=== PATIENT | female | born 1975 ===

== ENCOUNTER 2024-09-25 12:59 | Outpatient (AMB) | payer OTHER, SELFPAY ==
[2024-09-25 13:03] VITALS: BP 116/72; PULSE 83; RESP 16; TEMP 37.3; O2SAT 97
--- NOTE | 2024-09-25 13:03 | MHC.PC.OV ---
Vital Signs 09/25/24 13:03 Height 5 ft 5.25 in Weight 181 lb 6.4 oz BMI 30.0 BP 116/72 Blood Pressure Location Lt brachial Position Sitting Respiration 16 Pulse 83 Pulse Source Pulse Oximeter Temp 99.1 F Temp Source Oral Pulse Oximetry (%) 97 Oxygen Delivery Method Room Air Intake Visit Reasons: SYSTEMS MGR Intake Note: Patient is a new patient here to [facility]. Transferring care from [place], [place]. Medical records have not been requested and have not been received. Patient completed Authorization to Release Medical Information form today. Drum Carrier Required: No Accompanied by: Self / Same As Patient Allergies No Known Allergies Allergy (Verified 09/25/24 21:39) Medication List - Last Reconciled 09/25/24 by TIANNA Peters No Known Home Meds Tobacco use date assessed: 09/25/24 Dental Screening Dental Screen Date: 09/25/24 Did you have a dental visit in the last 12 months?: Yes Did you have a dental problem in the last 6 months where you did not have access to dental care?: No Was dental information given to patient?: Patient has dentist HPI SYSTEMS MGR HPI Details The patient is a 48-year-old female presenting to [facility]. She reports concerns about elevated CA 125 levels and abdominal pain. She has a history of thyroid nodules, initially monitored since 2012, which now includes two nodules. Additionally, she reports uterine fibroids discovered in the [place] leading to pain and heavy menstrual bleeding, which has escalated recently in severity. Her history also includes a positive HPV test prior to a negative test in June 2023. Recently, the patient has experienced nausea and vomiting, particularly after breakfast, leading to episodes immediately following intake. This is accompanied by abdominal swelling and discomfort, predominantly located in the mid-upper abdomen/left upper quadrant and contributing to facial swelling. She reports rectal discomfort on occasion without associated constipation, but with an altered shape (thinning) of stools, suspecting hemorrhoids. There is no accompanying mucosal or bloody discharge. The patient's family history includes both parents with hypertension and hyperlipidemia, and maternal diabetes. She [place] diagnostic tests and [place] issues, including an echocardiogram and Holter monitoring, following episodes of heart palpitations, which were reported normal. No adverse symptoms accompany palpitations, and they do not follow a particular pattern. The patient endorses drinking coffee three times a day. The patient reports that she was seeing an bake room worker, edge bonder, and obgyn, and she will need referrals for all these specialities. [facility] Medical History (Updated 09/25/24 @ 22:17 by TIANNA Peters) HLD (hyperlipidemia) Cytology examination positive for high risk human papillomavirus (HPV) Fibroids Thyroid mass Surgical History History of loop electrosurgical excision procedure (LEEP) Hx of dilation and curettage Family History Father Hypertension High cholesterol Mother Diabetes Hypertension High cholesterol FH: mental illness Depression Son No problems noted. Other HLD (hyperlipidemia) Social History Household Members: None Housing: Apartment Alcohol intake: never Patient Tobacco Use Status: Never used Tobacco e-Cigarette/Vaping Use: Never Used service: No Current occupational status: employed Current occupation: [employer] Cognitive needs: No Hearing needs: No Vision needs: No Female Reproductive History Menstrual Age of Menarche: 15 Duration of menses: 8-10 days Date of last menstrual period: 08/31/24 Questionnaire PHQ-9 Over the last 2 weeks, how often have you been bothered by any of the following problems? 1. Little interest or pleasure in doing things: several days 2. Feeling down, depressed, or hopeless: several days 3. Trouble falling or staying asleep, or sleeping too much: several days 4. Feeling tired or having little energy: several days 5. Poor appetite or overeating: several days 6. Feeling bad about yourself - or that you are a failure or have let yourself or your family down: several days 7. Trouble concentrating on things, such as reading the newspaper or watching television: several days 8. Moving or speaking so slowly that other people could have noticed. Or the opposite - being so fidgety or restless that you have been moving around a lot more than usual: not at all 9. Thoughts that you would be better off or of hurting yourself in some way: several days Total score: 8 Depression Screening Interpretation: Positive Depression Screening Done: Yes 78956 - PHQ-9 Billing: Yes Source: Developed by Drs. Devin Boland, Lilia Montejo, Shay Alexis and colleagues, with an educational brian from [employer]. Thrive Questionnaire Date Thrive assessed: 09/25/24 I am a: Patient What is your living situation today?: I have a steady place to live Within the past 12 months, did the food you bought not last and you didn't have the money to get more?: I choose not to answer this question Within the past 12 months, did you worry whether your food would run out before you got money to buy more?: I choose not to answer this question Do you have trouble paying for medicines?: I choose not to answer this question Do you have trouble getting transportation to medical appointments?: No Do you have trouble paying your heating and electricity bill?: No Do you have trouble taking care of your child, family member or friend?: No Do you have trouble with day-to-day activities such as bathing, preparing meals, shopping, managing finances, etc.?: Yes Are you currently unemployed and looking for a job?: No Are you interested in more education?: Yes Please select the resources that you would like help with: Education Currently or been in a relationship where the following occur: No concerns reported THRIVE Score: 0 AUDIT C Alcohol Use Questionnaire (AUDIT-C) 1. How often do you have a drink containing alcohol?: Monthly or less 2. How many drinks containing alcohol do you have on a typical day when you are drinking?: 1 or 2 3. How often do you have six or more drinks on one occasion?: Never Total Score: 1 Score Reviewed/Action Taken: No KOKO-7 AMB Questionnaire KOKO-7 Date KOKO - 7 assessed: 09/25/24 Feeling nervous, anxious, or on edge: 1 = Several days Not being able to stop or control worryin = Several days Worrying too much about different things: 1 = Several days Trouble relaxin = Several days Being so restless that it is hard to sit still: 1 = Several days Becoming easily annoyed or irritable: 1 = Several days Feeling afraid as if something awful might happen: 1 = Several days Total KOKO-7 score (0-4 normal; 5-9 mild; 10-14 moderate; 15-21 severe): 7 Source: Developed by Drs. Devin Boland, Lilia Montejo, Shay Alexis and colleagues, with an educational brian from [employer]. KOKO-7 Assessment Billing KOKO-7 Assessment Tool: KOKO-7 Assessment 73659 Review of Systems Const Details: - Gastrointestinal: Reports nausea, vomiting shortly after breakfast, abdominal pain, changes in stool shape. Denies heartburn or significant constipation. - Cardiovascular: Reports episodic heart palpitations. Denies chest pain or shortness of breath. - Genitourinary: Reports heavy and painful menstruation, associated with fibroids. - Dermatological: Reports facial swelling. - Neurological: Denies significant neurological complaints. Denies headache(s) Eyes Denies loss of vision ENT Denies vertigo, Denies dizziness, Denies headache(s) and Denies sore throat Card Denies chest pain, Reports rapid heart rate (on and off), Denies leg edema and Denies lightheadedness Resp Denies cough, Denies hemoptysis and Denies wheezing GI Reports abdominal pain (epigastric, left side of abdomen mid-way between the LUQ & LLQ), Denies melena, Reports change in stool character (thinner stools), Denies constipation, Reports excessive flatus, Denies diarrhea, Reports nausea, Reports vomiting and Reports other (intermittent anal pain) Reports abnormal vaginal bleeding, Denies urinary frequency, Reports menorrhagia, Denies dysuria and Denies urinary urgency Musc Denies arthralgias, Denies joint swelling, Denies numbness and Denies tingling Neuro Denies Abnormal speech present, Denies behavioral changes, Denies vertigo, Denies dizziness, Denies headache(s), Denies loss of vision, Denies memory loss, Denies numbness and Denies tingling Psych Denies anxiety, Denies behavioral changes, Denies depression, Denies memory loss and Denies panic attacks Elia/Lymph Denies easy bleeding and Denies easy bruising Aller/Immun Denies wheezing Physical exam (Primary Care) Vital Signs: Last Vital Signs Temp 99.1 F 09/25/24 13:03 Pulse 83 09/25/24 13:03 Resp 16 09/25/24 13:03 BP 116/72 09/25/24 13:03 Pulse Ox 97 09/25/24 13:03 Oxygen Delivery Method Room Air 09/25/24 13:03 BMI result Body Mass Index 30.0 Tobacco/Smoking Status: Tobacco use Status Tobacco use date assessed 09/25/24 09/25/24 13:19 Patient Tobacco Use Status Never used Tobacco 09/25/24 13:19 e-Cigarette/Vaping Use Never Used 09/25/24 13:19 PHQ-9: PHQ-9 Score PHQ-9: Total score 8 09/25/24 13:40 Depression Screening Interpretation: Positive Thrive Assessment: Date of Thrive Assessment Date Thrive assessed 09/25/24 09/25/24 13:19 Currently or been in a relationship where the following occur: No concerns reported Const General: healthy appearing, no acute distress, alert and awake Nutritional Appearance: well nourished Orientation/consciousness: oriented to person, oriented to place and oriented to time HENMT Ears: TM's normal bilaterally General nose exam: Normal nasal mucous membranes and turbinates present Eyes Conjunctivae: conjunctivae normal Sclerae: sclerae normal Pupils: Equal, round and reactive pupils present Neck Neck: Yes no lymphadenopathy and Yes no JVD Thyroid: Thyroid normal and mass on the left Carotids: no bruits Resp Effort & Inspection: normal respiratory effort and not tachypneic Auscultation: no crackles, no rales, no rhonchi and no wheezes Cardio Rate: regular rate Rhythm: regular rhythm Heart sounds: no murmurs and normal S1 and S2 GI Palpation (GI): Soft to palpation, Tenderness to palpation present (GI) in the epigastrum and in the LUQ, no hepatomegaly and no splenomegaly Auscultation: normal bowel sounds Skin General skin exam: no rashes or lesions noted and dry skin Neuro General: oriented to person, oriented to place and oriented to time Cranial nerves: Yes Equal, round and reactive pupils present Speech: No Abnormal speech present Gait exam (Neuro): Normal gait present Motor exam (neuro): no tremor noted Extrem Right upper extremity: full ROM Left upper extremity: full ROM Right lower extremity: full ROM; no edema Left lower extremity: full ROM; no edema Psych Mental Status: mental status grossly normal Speech and movement: Normal speech and movement present Affect: normal affect Attitude: cooperative Thought process: Normal thought process present Coding Level of Care Code New Pt Level 4 (00207) Diagnoses Nausea and vomiting, unspecified vomiting type R11.2 Vomiting type: unspecified Anal pain K62.89 Heart palpitations R00.2 Thyroid mass E07.9 Fibroids D21.9 Epigastric pain R10.13 Abdominal location: epigastric Additional Codes KOKO-7 Assessment Billing - KOKO-7 Assessment Tool: KOKO-7 Assessment 69478 ([id number]) PHQ-9 - 62465 - PHQ-9 Billing: Yes ([id number]) Time Spent (min) 43 Assessment & Plan Assessment & Plan (1) Nausea & vomiting: Code(s): R11.2 - Nausea with vomiting, unspecified Category: Medical Qualifiers: Vomiting type: unspecified Qualified Code(s): R11.2 - Nausea with vomiting, unspecified (2) Anal pain: Code(s): K62.89 - Other specified diseases of anus and rectum Category: Medical (3) Heart palpitations: Code(s): R00.2 - Palpitations Category: Medical (4) Thyroid mass: Code(s): E07.9 - Disorder of thyroid, unspecified Category: Medical (5) Fibroids: Code(s): D21.9 - Benign neoplasm of connective and other soft tissue, unspecified Category: Medical (6) Abdominal pain: Code(s): R10.9 - Unspecified abdominal pain Category: Medical Qualifiers: Abdominal location: epigastric Qualified Code(s): R10.13 - Epigastric pain Plan The focus remains on acquiring a complete abdominal ultrasound to further evaluate. The needs to be referred to obgyn to help determine the cause of her elevated CA 125 and related symptoms. Gastroenterology referral and colonoscopy are advised targeting gastrointestinal symptoms. Thyroid nodules will continue to be monitored, with specialist referral should manifestation or findings evolve. Screening and lifestyle adjustments for hyperlipidemia and potential hypertension are advised considering her family background. The patient is instructed on moderating coffee intake to alleviate palpitations and will do a follow-up in six weeks. The patient was also ordered Omeprazole 40 mg daily to rule out GERD symptoms causing nausea and vomiting after eating. Patient was informed and verbally consented to the use of an ambient scribe for clinic note documentation during this visit. Orders: Orders Complete Blood Count Auto Diff Today D21.9 - Benign neoplasm of connective and other soft tissue, unspecified, E07.9 - Disorder of thyroid, unspecified, R00.2 - Palpitations, R10.9 - Unspecified abdominal pain, Z00.00 - Encounter for general adult medical examination without abnormal findings TSH reflex Free T4 Today D21.9 - Benign neoplasm of connective and other soft tissue, unspecified, E07.9 - Disorder of thyroid, unspecified, R00.2 - Palpitations, R10.9 - Unspecified abdominal pain, Z00.00 - Encounter for general adult medical examination without abnormal findings Glucose Fasting Today D21.9 - Benign neoplasm of connective and other soft tissue, unspecified, E07.9 - Disorder of thyroid, unspecified, R00.2 - Palpitations, R10.9 - Unspecified abdominal pain, Z00.00 - Encounter for general adult medical examination without abnormal findings Vitamin D 25-OH Total Today D21.9 - Benign neoplasm of connective and other soft tissue, unspecified, E07.9 - Disorder of thyroid, unspecified, R00.2 - Palpitations, R10.9 - Unspecified abdominal pain, Z00.00 - Encounter for general adult medical examination without abnormal findings CRP High Sensitivity Today D21.9 - Benign neoplasm of connective and other soft tissue, unspecified, E07.9 - Disorder of thyroid, unspecified, R00.2 - Palpitations, R10.9 - Unspecified abdominal pain, Z00.00 - Encounter for general adult medical examination without abnormal findings Amylase Today R10.9 - Unspecified abdominal pain, R11.2 - Nausea with vomiting, unspecified Lipase Today R10.9 - Unspecified abdominal pain, R11.2 - Nausea with vomiting, unspecified Comprehensive [place]. Panel Fast Today D21.9 - Benign neoplasm of connective and other soft tissue, unspecified, E07.9 - Disorder of thyroid, unspecified, R00.2 - Palpitations, R10.9 - Unspecified abdominal pain, Z00.00 - Encounter for general adult medical examination without abnormal findings Lipid Panel Today D21.9 - Benign neoplasm of connective and other soft tissue, unspecified, E07.9 - Disorder of thyroid, unspecified, R00.2 - Palpitations, R10.9 - Unspecified abdominal pain, Z00.00 - Encounter for general adult medical examination without abnormal findings Triiodothyronine T3 Total Today D21.9 - Benign neoplasm of connective and other soft tissue, unspecified, E07.9 - Disorder of thyroid, unspecified, R00.2 - Palpitations, R10.9 - Unspecified abdominal pain, Z00.00 - Encounter for general adult medical examination without abnormal findings Free T4 (Free Thyroxine) Today D21.9 - Benign neoplasm of connective and other soft tissue, unspecified, E07.9 - Disorder of thyroid, unspecified, R00.2 - Palpitations, R10.9 - Unspecified abdominal pain, Z00.00 - Encounter for general adult medical examination without abnormal findings Erythrocyte Sedimentation Rate Today D21.9 - Benign neoplasm of connective and other soft tissue, unspecified, E07.9 - Disorder of thyroid, unspecified, R00.2 - Palpitations, R10.9 - Unspecified abdominal pain, Z00.00 - Encounter for general adult medical examination without abnormal findings US abdomen complete Today R10.9 - Unspecified abdominal pain Referrals Gastroenterology Referral K62.89 - Other specified diseases of anus and rectum, R10.13 - Epigastric pain, R11.2 - Nausea with vomiting, unspecified CIGARETTE MAKING EXAMINER Referral D21.9 - Benign neoplasm of connective and other soft tissue, unspecified, R87.810 - Cervical high risk human papillomavirus (HPV) DNA test positive Endocrinology Referral E07.9 - Disorder of thyroid, unspecified Medications: New omeprazole 40 mg PO DAILY 30 caps 2RF Patient Instructions: - Schedule and complete the recommended abdominal ultrasound promptly. - Follow up with GI specialist and schedule a colonoscopy. - Monitor thyroid with bake room worker if symptoms change. - Decrease coffee intake to see if it helps reduce heart palpitations. - Maintain records of any new symptoms and share them at follow-up. - Return in six weeks for follow-up, or sooner if lab results are concerning.
== END 2024-09-25 13:57 | disposition home or self-care (01) ==
LOC: HO.HMCH 13:00
DX: R11.2 Nausea with vomiting, unspecified (principal); K62.89 Other specified diseases of anus and rectum; R00.2 Palpitations; E07.9 Disorder of thyroid, unspecified; D21.9 Benign neoplasm of connective and other soft tissue, unspecified; R10.13 Epigastric pain

== ENCOUNTER → 2024-09-25 12:59 | Outpatient (BNVA) | payer OTHER, SELFPAY | DX: R11.2 Nausea with vomiting, unspecified (principal); K62.89 Other specified diseases of anus and rectum; R00.2 Palpitations; E07.9 Disorder of thyroid, unspecified; D21.9 Benign neoplasm of connective and other soft tissue, unspecified; R10.13 Epigastric pain | CPT/HCPCS: 96127; 99202 ==

== ENCOUNTER 2024-10-16 10:43 | Outpatient (REF) | payer OTHER, SELFPAY ==
--- NOTE | ~2024-10-16 | US_ITS ---
EXAMINATION: US ABDOMEN COMPLETE CLINICAL INFORMATION: Unspecified abdominal pain.. COMPARISON: None available. TECHNIQUE: Real-time ultrasound of the abdomen using grayscale technique. FINDINGS: PANCREAS: No peripancreatic fluid collection. No main pancreatic ductal dilatation. ABDOMINAL AORTA: The proximal, mid, and distal segments are normal in caliber. INFERIOR VENA CAVA: Visualized portions are normal. LIVER: Liver measures 14 cm by the certified ophthalmic technologist. Coarse echotexture. No nodular surface. Main portal vein is patent with normal hepatopedal flow direction.. No solid or cystic lesion detected by the certified ophthalmic technologist. No intrahepatic biliary ductal dilatation. GALLBLADDER: Fluid-filled. No pericholecystic fluid collection or gallbladder wall thickening. COMMON BILE DUCT: 3 mm. RIGHT KIDNEY: 11 cm. Normal echotexture. Normal renal cortical thickness. No hydronephrosis. No gross solid or cystic lesion detected by the technologist. LEFT KIDNEY: 11 cm. Normal echotexture. Normal renal cortical thickness. No hydronephrosis. No solid or cystic lesion detected by the technologist. . SPLEEN: 10 cm. No focal lesion.. FREE FLUID: None. US/US abdomen complete IMPRESSION: No cholelithiasis. No hydronephrosis. No ascites. Electronically signed by: Ok Farooq MD 10/16/2024 12:18 PM EDT
[2024-10-16 11:49] LABS: MANUAL DIFF FLAG NO
[2024-10-16 12:21] LABS: Basophils Absolute Auto 0.1 X10*3/uL (0.0-0.2); Basophils Percent Auto 0.8 % (0-2); Eosinophils Absolute Auto 0.1 X10*3/uL (0.0-0.4); Eosinophils Percent Auto 1.1 % (0-4); Hemoglobin 13.2 g/dl (12.0-16.0); Imm Gran Abs Auto 0.01 X10*3/uL (0.00-0.03); Imm Gran Pct Auto 0.1 % (0.0-0.4); Lymphocytes Absolute Auto 1.3 X10*3/uL (1.2-4.9); Mean Corpuscular HGB Conc 32.2 g/dl (31.0-35.0); Mean Corpuscular Hemoglobin 26.6 pg (27.0-33.0); Mean Corpuscular Volume 82.7 fL (80.0-98.0); Mean Platelet Volume 11.7 fL (9.4-12.3); Monocytes Absolute Auto 0.4 X10*3/uL (0.1-1.2); Neutrophils Absolute Auto 5.3 x10*3/uL (2.0-8.3); Platelet Count 248 X10*3/uL (160-400); Red Blood Count 4.96 X10*6/uL (4.20-5.50); Red Cell Distribution Width 15.9 % (11.0-16.0); White Blood Count 7.2 X10*3/uL (4.8-10.8)
[2024-10-16 13:02] LABS: Erythrocyte Sedimentation Rate 10 MM/HR (0-20)
[2024-10-16 15:24] LABS: Alanine Aminotransferase 16 U/L (0-31); Albumin Level 4.7 g/dL (3.5-5.0); Alkaline Phosphatase 88 U/L (39-117); Amylase 94 U/L (28-100); Anion Gap 9 (12-20); Aspartate Amino Transferase 24 U/L (5-31); Bilirubin Total 0.4 mg/dL (0.0-1.0); Blood Urea Nitrogen 12 mg/dL (9-16); Calcium 9.4 mg/dL (8.4-10.2); Carbon Dioxide 28 mmol/L (22-29); Chloride 106 mmol/L (96-108); Cholesterol 271 mg/dL (<200); Estimated Glomerular Filt Rate > 60; Glucose Fasting 83 mg/dL (60-99); HDL Cholesterol 62 mg/dL (>40); LDL Cholesterol Calculated 183 mg/dL (<100); Lipase 21 U/L (8-78); Potassium 3.8 mmol/L (3.3-5.1); Sodium 139 mmol/L (135-145); Total Protein 7.6 g/dL (6.5-8.0); Triglycerides 132 mg/dL (<150)
[2024-10-16 15:41] LABS: Free T4 (Free Thyroxine) 1.08 ng/dL (0.71-1.85); TSH reflex Free T4 1.35 uIU/mL (0.32-4.0); Vitamin D 25-OH Total 42.7 ng/mL (>30)
[2024-10-17 04:24] LABS: Triiodothyronine T3 Total 75 ng/dL (76-181)
== END 2024-10-16 10:44 | disposition home or self-care (01) ==
LOC: HO.US 10:43
DX: Z00.00 Encounter for general adult medical examination without abnormal findings (principal); R10.9 Unspecified abdominal pain; D21.9 Benign neoplasm of connective and other soft tissue, unspecified; E07.9 Disorder of thyroid, unspecified; R00.2 Palpitations; R11.2 Nausea with vomiting, unspecified
CPT/HCPCS: 36415; 76700; 80053; 80061; 82150; 82306; 83690; 84439; 84443; 84480; 85025; 85652; 86141

== ENCOUNTER → 2024-10-16 10:57 | Outpatient (BNV) | payer OTHER, SELFPAY | PROVIDERS: Visit Provider Radiology Diagnostic Radiology | DX: R10.9 Unspecified abdominal pain (principal) | CPT/HCPCS: 76700 ==

== ENCOUNTER 2024-10-25 14:50 | Outpatient (AMB) | payer OTHER, SELFPAY ==
--- NOTE | 2024-10-25 14:56 | A.OFFPC_ITS ---
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 Accompanied by: Self / Same As Patient Allergies No Known Allergies Allergy (Verified 10/25/24 15:05) Medication List - Last Reconciled 10/25/24 by TIANNA Peters multivitamin 1 tab PO DAILY omeprazole 40 mg PO DAILY Tobacco use date assessed: 10/25/24 Dental Screening Dental Screen Date: 10/25/24 Did you have a dental visit in the last 12 months?: Yes Did you have a dental problem in the last 6 months where you did not have access to dental care?: No Was dental information given to patient?: Patient has dentist HPI annual exam HPI Details Dentist: up to date Eye:about 2 years Snellen: Right: Left: Corrected vision: no STI screening: Colonoscopy: will do the cologaurd Pap Smer: 06/2023-due has upcoming appt mammogram: due she will PHQ-9: Flu: up to date COVID: x4 Tdap: she will check if she is update on this test Diet: Eating four eggs a day, she will start removing the yoke of the eggs Exercise:She walks frequently not sleeping: will start on trazodone 25 mg for bedtime, patient can increased to 50 mg or update office so the prescription could be changed. The patient is a 48-year-old female presenting with a wellness visit with an emphasis on the management of her hyperlipidemia, insomnia, thyroid dysfunction, and anxiety. Her hyperlipidemia has proven challenging to control, with statin therapy previously causing dizziness and leading to discontinuation. Maternal and paternal histories indicate familial hyperlipidemia, which increases her c ardiovascular risk. The insomnia she experiences is characterized by an inability to maintain sleep, impacting her overall rest quality. Past interventions include lorazepam and [id number] Benadryl, the latter of which led to undesirable side effects such as palpitations. Thyroid testing revealed a slightly low T3 but otherwise typical thyroid profiles, contributing to her pursuit of specialist evaluation. Anxiety remains a relevant concern, with past reliance on lorazepam for symptomatic relief, though she seeks alternatives to avoid dependence. Health maintenance: - Cholesterol management: Attempt dietar y changes and reassess in three months. - Referral to endocrinology for thyroid evaluation. - Scheduled colorectal screening via Col oguard or colonoscopy depending GI consult recommendations given her GI symptoms - Pap smear and mammogram screening are scheduled. - Patient received COVID-19 vaccinations and annual flu vaccinations. - Tetanus vaccine status requires confir mation. - Encouraged weight management through d iet and regular walking. - Advised about cholesterol-lowering tary changes, specifically egg yolk reduction and increasing egg whites. [facility] Medical History (Updated 11/02/24 @ 23:00 by TIANNA Peters) HLD (hyperlipidemia) Cytology examination positive for high risk human papillomavirus (HPV) Fibroids Thyroid mass Surgical History History of loop electrosurgical excision procedure (LEEP) Hx of dilation and curettage Family History Father Hypertension High cholesterol Mother Diabetes Hypertension High cholesterol FH: mental illness Depression Son No problems noted. 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 1. Little interest or pleasure in doing things: several days 2. Feeling down, depressed, or hopeless: several days 3. Trouble falling or staying asleep, or sleeping too much: several days 4. Feeling tired or having little energy: several days 5. Poor appetite or overeating: several days 6. Feeling bad about yourself - or that you are a failure or have let yourself or your family down: several days 7. Trouble concentrating on things, such as reading the newspaper or watching television: several days 8. Moving or speaking so slowly that other people could have noticed. Or the opposite - being so fidgety or restless that you have been moving around a lot more than usual: not at all 9. Thoughts that you would be better off or of hurting yourself in some way: several days Total score: 8 Depression Screening Interpretation: Positive Depression Screening Done: Yes Source: Developed by Drs. Devin Boland, Lilia Montejo, Shay Alexis and colleagues, with an educational brian from [employer]. Thrive Questionnaire Date Thrive assessed: 10/25/24 I am a: Patient What is your living situation today?: I have a steady place to live Within the past 12 months, did the food you bought not last and you didn't have the money to get more?: I choose not to answer this question Within the past 12 months, did you worry whether your food would run out before you got money to buy more?: I choose not to answer this question Do you have trouble paying for medicines?: I choose not to answer this question Do you have trouble getting transportation to medical appointments?: No Do you have trouble paying your heating and electricity bill?: No Do you have trouble taking care of your child, family member or friend?: No Do you have trouble with day-to-day activities such as bathing, preparing meals, shopping, managing finances, etc.?: Yes Are you currently unemployed and looking for a job?: No Are you interested in more education?: Yes Please select the resources that you would like help with: Education Currently or been in a relationship where the following occur: No concerns reported THRIVE Score: 0 AUDIT C Alcohol Use Questionnaire (AUDIT-C) 1. How often do you have a drink containing alcohol?: Monthly or less 2. How many drinks containing alcohol do you have on a typical day when you are drinking?: 1 or 2 3. How often do you have six or more drinks on one occasion?: Never Total Score: 1 Score Reviewed/Action Taken: No KOKO-7 AMB Questionnaire KOKO-7 Date KOKO - 7 assessed: 10/25/24 Feeling nervous, anxious, or on edge: 1 = Several days Not being able to stop or control worryin = Several days Worrying too much about different things: 1 = Several days Trouble relaxin = Several days Being so restless that it is hard to sit still: 1 = Several days Becoming easily annoyed or irritable: 1 = Several days Feeling afraid as if something awful might happen: 1 = Several days Total KOKO-7 score (0-4 normal; 5-9 mild; 10-14 moderate; 15-21 severe): 7 Source: Developed by Drs. Devin Boland, Lilia Montejo, Shay Alexis and colleagues, with an educational brian from [employer]. Review of Systems Const Details: - Endocrine: Denies significant hypo- or hyperthyroid symptoms but notes slightly low T3 levels. - Neurological: Reports insomnia; denies any other neurological symptoms. - Psychiatric: Reports anxiety; managed successfully with lorazepam in the past. - Nutritional: Reports dietary focus on low carbohydrates and high protein. - Cardiovascular: Denies chest pain or palpitations. - Musculoskeletal: Reports lower back discomfort. - Dermatological: Reports hair loss and increased facial hair. Denies headache(s) Eyes Denies loss of vision ENT Denies vertigo, Denies dizziness, Denies headache(s) and Denies sore throat Card Denies chest pain, Denies leg edema and Denies lightheadedness Resp Denies cough, Denies hemoptysis and Denies wheezing GI Denies abdominal pain, Denies melena, Reports change in stool character (thinner), Denies constipation, Denies heartburn, Denies diarrhea and Denies vomiting Reports abnormal vaginal bleeding, Denies urinary frequency, Reports menorrhagia, Denies dysuria and Denies urinary urgency Musc Reports back pain, Denies arthralgias, Denies joint swelling, Denies numbness and Denies tingling Neuro Denies Abnormal speech present, Denies behavioral changes, Denies vertigo, Denies dizziness, Denies headache(s), Denies loss of vision, Denies memory loss, Denies numbness and Denies tingling Psych Reports anxiety, Denies behavioral changes, Denies depression, Denies memory loss and Denies panic attacks Elia/Lymph Denies easy bleeding and Denies easy bruising Aller/Immun Denies wheezing Physical exam (Primary Care) Vital Signs: Last Vital Signs Pulse 82 10/25/24 14:57 BP 118/86 10/25/24 14:57 Pulse Ox 99 10/25/24 14:57 Oxygen Delivery Method Room Air 10/25/24 14:57 BMI result Body Mass Index 29.5 Tobacco/Smoking Status: Tobacco use Status Tobacco use date assessed 10/25/24 10/25/24 15:02 Patient Tobacco Use Status Never used Tobacco 10/25/24 15:02 e-Cigarette/Vaping Use Never Used 10/25/24 15:02 PHQ-9: PHQ-9 Score PHQ-9: Total score 8 11/02/24 19:32 Depression Screening Interpretation: Positive Thrive Assessment: Date of Thrive Assessment Date Thrive assessed 10/25/24 10/25/24 15:02 Currently or been in a relationship where the following occur: No concerns reported Const General: healthy appearing, no acute distress, alert and awake Nutritional Appearance: well nourished Orientation/consciousness: oriented to person, oriented to place and oriented to time HENMT Ears: TM's normal bilaterally General nose exam: Normal nasal mucous membranes and turbinates present Eyes Conjunctivae: conjunctivae normal Sclerae: sclerae normal Pupils: Equal, round and reactive pupils present Neck Neck: Yes no lymphadenopathy and Yes no JVD Thyroid: Thyroid normal Carotids: no bruits Resp Effort & Inspection: normal respiratory effort and not tachypneic Auscultation: no crackles, no rales, no rhonchi and no wheezes Cardio Rate: regular rate Rhythm: regular rhythm Heart sounds: no murmurs and normal S1 and S2 GI Palpation (GI): Soft to palpation, nontender, no hepatomegaly and no splenomegaly Auscultation: normal bowel sounds Skin General skin exam: no rashes or lesions noted and dry skin Neuro General: oriented to person, oriented to place and oriented to time Cranial nerves: Yes CN's II-XII intact bilaterally and Yes Equal, round and reactive pupils present Speech: No Abnormal speech present Gait exam (Neuro): Normal gait present Motor exam (neuro): no tremor noted Deep tendon reflexes (DTR's): Right triceps reflex intensity grade: 2+, Left triceps reflex intensity grade: 2+, Rt Biceps (C5, C6): 2+, Left biceps reflex intensity grade: 2+, Right brachioradialis reflex intensity grade: 2+, Left brachioradialis reflex intensity grade: 2+, Right patellar reflex intensity grade: 2+ and Left patellar reflex intensity grade: 2+ Extrem Right upper extremity: full ROM Left upper extremity: full ROM Right lower extremity: full ROM; no edema Left lower extremity: full ROM; no edema Psych Mental Status: mental status grossly normal Speech and movement: Normal speech and movement present Affect: normal affect Attitude: cooperative Thought process: Normal thought process present Results Reviewed Results Reviewed: Laboratory Tests 10/16/24 11:47 WBC 7.2 RBC 4.96 Hgb 13.2 Hct 41.0 MCV 82.7 MCH 26.6 L MCHC 32.2 RDW 15.9 Plt Count 248 MPV 11.7 Sodium 139 Potassium 3.8 Chloride 106 Carbon Dioxide 28 Anion Gap 9 L BUN 12 Creatinine 0.71 Estimated GFR > 60 Fasting Glucose 83 Calcium 9.4 Total Bilirubin 0.4 AST 24 ALT 16 Alkaline Phosphatase 88 C-React Prot High Sens 2.0 Total Protein 7.6 Albumin 4.7 Triglycerides 132 Cholesterol 271 H LDL Cholesterol, Calc 183 H HDL Cholesterol 62 Amylase 94 Lipase 21 25-OH Vitamin D Total 42.7 TSH 1.35 Free T4 1.08 Total T3 75 L Coding Level of Care Code Est Pt Prev Care 40-64y([id number]) Diagnoses Epigastric pain R10.13 Abdominal location: epigastric Annual physical exam Z00.00 Fibroids D21.9 Thyroid mass E07.9 Heart palpitations R00.2 Nausea and vomiting, unspecified vomiting type R11.2 Vomiting type: unspecified Anxiety F41.9 Insomnia, unspecified type G47.00 Insomnia type: unspecified Time Spent (min) 41 Assessment & Plan Assessment & Plan (1) Abdominal pain: Code(s): R10.9 - Unspecified abdominal pain Category: Medical Qualifiers: Abdominal location: epigastric Qualified Code(s): R10.13 - Epigastric pain (2) Annual physical exam: Code(s): Z00.00 - Encounter for general adult medical examination without abnormal f indings Category: Medical (3) Fibroids: Code(s): D21.9 - Benign neoplasm of connective and other soft tissue, unspecified Category: Medical (4) Thyroid mass: Code(s): E07.9 - Disorder of thyroid, unspecified Category: Medical (5) Heart palpitations: Code(s): R00.2 - Palpitations Category: Medical (6) Nausea & vomiting: Code(s): R11.2 - Nausea with vomiting, unspecified Category: Medical Qualifiers: Vomiting type: unspecified Qualified Code(s): R11.2 - Nausea with vomiting, unspecified (7) Anxiety: Code(s): F41.9 - Anxiety disorder, unspecified Category: Medical (8) Insomnia: Code(s): G47.00 - Insomnia, unspecified Category: Medical Qualifiers: Insomnia type: unspecified Qualified Code(s): G47.00 - Insomnia, unspecified Plan Reviewed preventative guidelines and recent labs with patient. Dietary changes will target improvement in hyperlipidemia with a pivotal focus on reducing egg yolk consumption to decrease LDL cholesterol levels. Cholesterol will be reevaluated in three months. Trazodone is prescribed for insomnia management, beginning at a lower dose with adjustments based on patient response. An endocrinology consult is scheduled for further evaluation of thyroi d dysfunction. She will proceed with preventive health screenings, upcoming appointments for mammogram and Pap smear. Current anxiety management strategies are under review with an interest in non-benzodiazepine approaches. Awaiting GI consultation to decide if the patient warrants a colonoscopy due to her GI symptoms or if she could proceed with doing the cologuard. The patient is ok with doing either one of the screening modalities. Patient was informed and verbally consented to the use of an ambient scribe for clinic note documentation during this visit. Orders: Orders Lipase 3 Months E78.00 - Pure hypercholesterolemia, unspecified, E07.9 - Disorder of thyroid, unspecified TSH reflex Free T4 3 Months E78.00 - Pure hypercholesterolemia, unspecified, E07.9 - Disorder of thyroid, unspecified UA CC w/rflx Micro + Cult 3 Months E78.00 - Pure hypercholesterolemia, unspecified, E07.9 - Disorder of thyroid, unspecified Free T4 (Free Thyroxine) 3 Months E78.00 - Pure hypercholesterolemia, unspecif ied, E07.9 - Disorder of thyroid, unspecified Vitamin D 25-OH Total 3 Months E78.00 - Pure hypercholesterolemia, unspecified, E07.9 - Disorder of thyroid, unspecified Medications: New trazodone 25 mg (1/2 x 50 mg) PO BEDTIME PRN 30 tabs 2RF insomnia Patient Instructions: Will have the patient follow in three months with repeats labs
[2024-10-25 14:57] VITALS: BP 118/86; PULSE 82; O2SAT 99; BMI 29.5
== END 2024-10-25 15:42 | disposition home or self-care (01) ==
LOC: HO.HMCH 14:51
DX: R10.13 Epigastric pain (principal); Z00.00 Encounter for general adult medical examination without abnormal findings; D21.9 Benign neoplasm of connective and other soft tissue, unspecified; E07.9 Disorder of thyroid, unspecified; R00.2 Palpitations; R11.2 Nausea with vomiting, unspecified; F41.9 Anxiety disorder, unspecified; G47.00 Insomnia, unspecified

== ENCOUNTER → 2024-10-25 14:50 | Outpatient (BNVA) | payer OTHER, SELFPAY | DX: Z00.00 Encounter for general adult medical examination without abnormal findings (principal); R10.13 Epigastric pain; D21.9 Benign neoplasm of connective and other soft tissue, unspecified; E07.9 Disorder of thyroid, unspecified; R00.2 Palpitations; R11.2 Nausea with vomiting, unspecified; F41.9 Anxiety disorder, unspecified; G47.00 Insomnia, unspecified | CPT/HCPCS: 99396 ==

== ENCOUNTER 2024-11-26 14:55 | Outpatient (AMB) | payer OTHER, SELFPAY ==
[2024-11-26 14:56] VITALS: BP 114/54; PULSE 90; O2SAT 97; BMI 29.2
--- NOTE | 2024-11-26 14:56 | A.OFFVIS_ITS ---
Vital Signs 11/26/24 14:56 Height 5 ft 5.25 in Weight 177 lb 0.499 oz BMI 29.2 BP 114/54 L Blood Pressure Location Lt brachial Position Sitting Pulse 90 Pulse Source Pulse Oximeter Pulse Oximetry (%) 97 Oxygen Delivery Method Room Air Intake Visit Reasons: Thyroid nodule Intake Note: New patient present today for Thyroid nodule. 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 Outside records were reviewed, ultrasound of the thyroid from February 2022 showed a right lower pole 1.3 cm TI-RADS 3 category nodule.FNa biopsy of the right sided nodule per patient 2017 in [place] was benign per patient and also had in [facility] 2023, was also benign. Apparenlty had a new left sided nodule on US whihc was small and didnt meet criteria for biopsy I do not have records of this. Normal TFTs from September 2024. Patient currently denies heat or cold intolerance, diarrhea or constipation, hair loss, palpitation, weight changes, mood changes, low energy, changes in appearance of eyes or vision changes, tremors, increased diaphoresis or dry skin. ?intermittent palpitations, saw senior reservoir engineer in [place] and workup was remarkable. reports some increased anxiety. Patient denies any difficulty swallowing, pain on swallowing or difficulty breathing. reports intermittent hoarseness. Patient denies any history of childhood neck radiation. Denies having ever used lithium, amiodarone or biotin supplements. Patient denies any family history of thyroid cancer or thyroid disease. Physical exam General: sitting comfortably in no acute distress HEENT: normocephalic/atraumatic, Neck: supple, 1 cm right-sided nodule Cardiac: normal heart sounds Pulm: normal breath sounds B/L, no added breath sounds Abd: not distended, no tenderness Extremities: no edema, no signs of myxedema Neuro: AAO x3, Speech: normal, no facial droop, moving all 4 extremities Laboratory Tests 10/16/24 11:47 TSH 1.35 Free T4 1.08 Total T3 75 L PFSH Medical History (Updated 11/26/24 @ 15:13 by Lisa Armstrong MD) Multinodular goiter (nontoxic) HLD (hyperlipidemia) Cytology examination positive for high risk human papillomavirus (HPV) Fibroids Thyroid mass Surgical History History of loop electrosurgical excision procedure (LEEP) Hx of dilation and curettage Family History Father Hypertension High cholesterol Mother Diabetes Hypertension High cholesterol FH: mental illness Depression Son No problems noted. 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 Extensive Outside records were reviewed, ultrasound of the thyroid from February 2022 showed a right lower pole 1.3 cm TI-RADS 3 category nodule.FNa biopsy of the right sided nodule per patient 2017 in [place] was benign per patient and also had in [facility] 2023, was also benign. Apparently had a new left sided nodule on US which was small and didnt meet criteria for biopsy I do not have records of this. She has had multiple TFTs over the past few areas which were all normal. Normal TFTs from September 2024. At this point we will get an ultrasound of her thyroid to follow up on her nodules. She does not have any compressive symptoms. No major symptoms of hypothyroidism or hyperthyroidism. Plan: -ordered ultrasound of the thyroid -follow up in 5 weeks to discuss results Plan See above Orders: Orders US thyroid Today E04.2 - Nontoxic multinodular goiter Patient Instructions: Do ultrasound of the thyroid , someone will call you to schedule this Coding Level of Care Code New Pt Level 4 (04664) Diagnoses Multinodular goiter (nontoxic) E04.2
== END 2024-11-26 15:15 | disposition home or self-care (01) ==
LOC: HO.ENCR 14:55
PROVIDERS: Visit Provider Student in an Organized Health Care Education/Training Program
DX: E04.2 Nontoxic multinodular goiter (principal)
CPT/HCPCS: 99204

== ENCOUNTER → 2024-11-26 14:55 | Outpatient (BNVA) | payer OTHER, SELFPAY | PROVIDERS: Visit Provider Student in an Organized Health Care Education/Training Program | DX: E04.2 Nontoxic multinodular goiter (principal) | CPT/HCPCS: 99202 ==

== ENCOUNTER 2025-01-02 13:54 | Outpatient (REF) | payer OTHER, SELFPAY ==
--- NOTE | ~2025-01-02 | US_ITS ---
EXAMINATION: US THYROID HISTORY: E04.2 - Nontoxic multinodular goiter TECHNIQUE: Real-time grayscale ultrasound imaging was performed and images were reviewed. COMPARISON: There are no prior studies available for comparison. FINDINGS: SIZE: The right thyroid lobe measures 5.2 x 1.5 x 1.6 cm. The left thyroid lobe measures 4.5 x 1.3 x 2.2 cm. The isthmus measures 3 mm. FLOW: Flow to the gland is normal. ECHOGENICITY: The echotexture of the gland is homogeneous. NODULES: Nodules are identified in both thyroid lobes as described below: Nodule #: 1 Location: Right lower pole measuring 1.5 x 0.9 x 1.2 cm. Shape: Wider than tall (0 points) Margins: Smooth (0 points) Echotexture: Hypoechoic (2 points) Composition: Solid (2 points) Calcifications: Punctate calcifications (3 points) Total points: 7 TIRADS: TR5: Highly suspicious. Nodule #: 2 Location: Midportion of the left thyroid lobe measuring 0.8 x 0.4 x 0.6 cm. Shape: Wider than tall (0 points) Margins: Smooth (0 points) Echotexture: Hypoechoic (2 points) Composition: Mixed (1 point) Calcifications: None (0 points) Total points: 3 TIRADS: TR3: Mildly suspicious. US/US thyroid IMPRESSION: Highly suspicious nodule at the lower pole of the right thyroid lobe as described above. According to ACR TI-RADS guidelines (see below), ultrasound-guided fine-needle aspiration is recommended. ACR TI-RADS Guidelines TR1 (0 points): Benign. No follow-up or biopsy required TR2 (2 points): Not Suspicious. No biopsy or follow up indicated TR3 (3 points): Mildly Suspicious. FNA if >= 2.5 cm, Follow if >= 1.5 cm TR4 (4-6 points): Moderately Suspicious. FNA if >= 1.5 cm, Follow if >= 1.0 cm TR5 (>=7 points): Highly Suspicious. FNA if >= 1.0 cm, Follow if >= 0.5 cm Electronically signed by: Devin Rivero MD 01/02/2025 02:51 PM EDT
== END 2025-01-02 13:55 | disposition home or self-care (01) ==
LOC: HO.HMGCX 13:54
PROVIDERS: Visit Provider Student in an Organized Health Care Education/Training Program
DX: E04.2 Nontoxic multinodular goiter (principal)
CPT/HCPCS: 76536

== ENCOUNTER → 2025-01-02 14:01 | Outpatient (BNV) | payer OTHER, SELFPAY | PROVIDERS: Visit Provider Radiology Diagnostic Radiology | DX: E04.2 Nontoxic multinodular goiter (principal) | CPT/HCPCS: 76536 ==

== ENCOUNTER 2025-01-08 13:37 | Outpatient (REF) | payer OTHER, SELFPAY ==
[2025-01-08 15:21] LABS: Hematocrit 38.0 % (37.0-47.0); Hemoglobin 12.3 g/dl (12.0-16.0); Mean Corpuscular HGB Conc 32.4 g/dl (31.0-35.0); Mean Corpuscular Hemoglobin 27.1 pg (27.0-33.0); Mean Corpuscular Volume 83.7 fL (80.0-98.0); NRBC Abs Auto 0.000 X10*3/uL (0.0-0.012); NRBC Pct Auto 0.0 /100WBC (0.0-0.2); Platelet Count 300 X10*3/uL (160-400); Red Blood Count 4.54 X10*6/uL (4.20-5.50); White Blood Count 8.3 X10*3/uL (4.8-10.8)
[2025-01-08 15:59] LABS: Alanine Aminotransferase 16 U/L (0-31); Albumin Level 4.4 g/dL (3.5-5.0); Alkaline Phosphatase 93 U/L (39-117); Anion Gap 13 (12-20); Aspartate Amino Transferase 20 U/L (5-31); Blood Urea Nitrogen 16 mg/dL (9-16); Calcium 9.3 mg/dL (8.4-10.2); Carbon Dioxide 26 mmol/L (22-29); Chloride 105 mmol/L (96-108); Estimated Glomerular Filt Rate > 60; Iron 120 mcg/dL (30-160); Lipase 34 U/L (8-78); Percent Iron Saturation 41 % (15-50); Potassium 4.5 mmol/L (3.3-5.1); Sodium 139 mmol/L (135-145); Total Iron Binding Capacity 292 mcg/dL (228-428); Total Protein 7.0 g/dL (6.5-8.0); Unsaturated Iron Binding 172 ug/dL
[2025-01-08 16:09] LABS: Free T4 (Free Thyroxine) 1.15 ng/dL (0.71-1.85)
[2025-01-08 16:11] LABS: Ferritin 7 ng/mL (10-250)
[2025-01-08 16:20] LABS: Appearance Urine Clear; Glucose Urine UA Negative (Negative); PH 7.0 (5.0-9.0); Specific Gravity - Urine 1.010 (1.005-1.025)
[2025-01-09 09:13] LABS: Immunoglobulin A 229 mg/dL (47-310)
== END 2025-01-08 13:38 | disposition home or self-care (01) ==
LOC: HO.LAB 13:37
PROVIDERS: Visit Provider Internal Medicine
DX: R10.13 Epigastric pain (principal); R35.0 Frequency of micturition; R11.2 Nausea with vomiting, unspecified; E78.00 Pure hypercholesterolemia, unspecified; E07.9 Disorder of thyroid, unspecified
CPT/HCPCS: 36415; 80053; 81003; 82306; 82728; 82784; 83540; 83690; 84439; 84443; 85027; 86140; 86364; 99212

== ENCOUNTER 2025-01-08 13:37 | Outpatient (AMB) | payer OTHER, SELFPAY ==
--- NOTE | 2025-01-08 13:41 | A.OFFVIS_ITS ---
Intake Visit Reasons: Epigastric Pain Intake Note: Kellen presents as a telehealth today for epigastric pains, CC: No irregular bowel movements - she states she just has MORE BMs than she usually does. Denies diarrhea or constipation and no blood at all. Pains in the stomach are in the epigastric region and sometimes it goes over to the left side. Equipment Tester Required: No Allergies No Known Allergies Allergy (Verified 01/08/25 15:27) HPI Comments Details: 49 y.o F with no significant PMH who is here for telehealth to establish care. Reports epigastruc discomfort and L sided pain after eating x 6 m. Assoc with borborygmi. Trigger foods are chocolate and dairy. Sometimes with anusea. Also noticing increased frequency of stools. Has 2-3 BMs per day which are soft. No blood. Thinner caliber. INTENTIONAL weight loss of 15 lbs > 6 months due to personal efforts. No fevers, vomiting, heartburn, bloating. No fam hx of CRC or IBD. Does not smoke. Social etOH use. Routine ibuprofen use at least 3 days per month, during mentrual cycle. Does not exceed 1200/day. Of note, patient also reports significant slowly more stressful work environment, also for the last 6 months, which could also be contributing to some of the GI symptoms. [facility] Medical History Multinodular goiter (nontoxic) HLD (hyperlipidemia) Cytology examination positive for high risk human papillomavirus (HPV) Fibroids Thyroid mass Surgical History History of loop electrosurgical excision procedure (LEEP) Hx of dilation and curettage Family History Father Hypertension High cholesterol Mother Diabetes Hypertension High cholesterol FH: mental illness Depression Son No problems noted. 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 Cognitive needs: No Hearing needs: No Vision needs: No Female Reproductive History Menstrual Age of Menarche: 15 Review of Systems Const All systems reviewed & are unremarkable except as noted in HPI and below Physical Exam Exam Exam: Video visit: No acute distress No icterus noted No facial asymmetry Speaking in full sentences Telehealth Telehealth Telehealth Platform: Best Teacher Location of provider rendering services: practice address Location of patient: address on file Patient Identification confirmed using: Name, : Yes Telehealth method: video Patient verbally consented to treatment: Yes Patient verbally consented to billing insurance company: Yes Patient informed of any privacy concerns related to visit: Yes Minutes spent on Phone/Video with Pt.: 13 Assessment & Plan Assessment & Plan (1) Nausea & vomiting: Code(s): R11.2 - Nausea with vomiting, unspecified Category: Medical Qualifiers: Vomiting type: unspecified Qualified Code(s): R11.2 - Nausea with vomiting, unspecified (2) Change in bowel habit: Code(s): R19.4 - Change in bowel habit Category: Medical (3) Abdominal pain: Code(s): R10.9 - Unspecified abdominal pain Category: Medical Qualifiers: Abdominal location: epigastric Qualified Code(s): R10.13 - Epigastric pain Plan Differentials include PUD, IBD, GERD, SIBO, celiac, IBS. Cholelithiasis unlikely based on the ultrasound obtained in September. Plan: -labs ordered including H pylori antigen -barium swallow -follow-up in 4 weeks to review results and indication for EGD/colonoscopy Orders: Orders Transglutaminase IgA Today R10.13 - Epigastric pain, R19.4 - Change in bowel habit C Reactive Protein Today R10.13 - Epigastric pain, R19.4 - Change in bowel habit Calprotectin, Fecal Today R10.13 - Epigastric pain, R19.4 - Change in bowel habit Complete Blood Count no Diff Today R10.13 - Epigastric pain, R19.4 - Change in bowel habit Comprehensive Met. Panel Today R10.13 - Epigastric pain, R19.4 - Change in bowel habit Immunoglobulin A Today R10.13 - Epigastric pain, R19.4 - Change in bowel habit Ferritin Today R10.13 - Epigastric pain, R19.4 - Change in bowel habit IRON PROFILE Today R10.13 - Epigastric pain, R19.4 - Change in bowel habit H pylori Ag Stool Today R10.13 - Epigastric pain FL barium swallow Today R10.13 - Epigastric pain, R11.2 - Nausea with vomiting, unspecified Coding Level of Care Code Tele New Pt Level 4 (64514) Complex EM visit Add On G2211 Diagnoses Nausea and vomiting, unspecified vomiting type R11.2 Vomiting type: unspecified Change in bowel habit R19.4 Epigastric pain R10.13 Abdominal location: epigastric
== END 2025-01-08 18:26 | disposition home or self-care (01) ==
LOC: HO.HGI 13:37
PROVIDERS: Referring Provider Internal Medicine; Visit Provider Internal Medicine
DX: R11.2 Nausea with vomiting, unspecified (principal); R19.4 Change in bowel habit; R10.13 Epigastric pain
CPT/HCPCS: 99204

== ENCOUNTER 2025-01-08 15:19 | Outpatient (AMB) | payer OTHER, SELFPAY ==
--- NOTE | 2025-01-08 15:23 | A.OFFVIS_ITS ---
Vital Signs 3 01/08/25 15:24 Height 5 ft 5.25 in Weight 172 lb 2.896 oz BMI 28.4 BP 110/74 Blood Pressure Location Lt brachial Position Sitting Pulse 80 Pulse Source Pulse Oximeter Pulse Oximetry (%) 98 Oxygen Delivery Method Room Air Intake Visit Reasons: Thyroid nodule Intake Note: Patient present today for Thyroid nodule office visit. 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 HPI Outside records were reviewed, ultrasound of the thyroid from February 2022 showed a right lower pole 1.3 cm TI-RADS 3 category nodule.FNa biopsy of the right sided nodule per patient 2017 in [place] was benign per patient and also had in [facility] 2023, was also benign. Apparenlty had a new left sided nodule on US whihc was small and didnt meet criteria for biopsy I do not have records of this. Normal TFTs from September 2024. Patient currently denies heat or cold intolerance, diarrhea or constipation, hair loss, palpitation, weight changes, mood changes, low energy, changes in appearance of eyes or vision changes, tremors, increased diaphoresis or dry skin. ?intermittent palpitations, saw manager cardiology in [place] and workup was remarkable. reports some increased anxiety. Patient denies any difficulty swallowing, pain on swallowing or difficulty breathing. reports intermittent hoarseness. Patient denies any history of childhood neck radiation. Denies having ever used lithium, amiodarone or biotin supplements. Patient denies any family history of thyroid cancer or thyroid disease. Interval history 01/02/2025: Ultrasound of the thyroid done, I reviewed the images myself which show homogeneous gland with normal vascularity. Right inferior nodule measures 1.5 X 0.9 next 1.2 cm which is solid hypoechoic with punctate echogenic foci, TR 5 category. Left mid lobe subcentimeter 0.8 cm mixed cystic solid hypoechoic TR 3 category nodule. Physical exam General: sitting comfortably in no acute distress HEENT: normocephalic/atraumatic, Neck: supple, 1 cm right-sided nodule Cardiac: normal heart sounds Pulm: normal breath sounds B/L, no added breath sounds Abd: not distended, no tenderness Extremities: no edema, no signs of myxedema Neuro: AAO x3, Speech: normal, no facial droop, moving all 4 extremities Laboratory Tests 10/16/24 11:47 TSH 1.35 Free T4 1.08 Total T3 75 L EXAMINATION: US THYROID 01/02/2025 HISTORY: E04.2 - Nontoxic multinodular goiter TECHNIQUE: Real-time grayscale ultrasound imaging was performed and images were reviewed. COMPARISON: There are no prior studies available for comparison. FINDINGS: SIZE: The right thyroid lobe measures 5.2 x 1.5 x 1.6 cm. The left thyroid lobe measures 4.5 x 1.3 x 2.2 cm. The isthmus measures 3 mm. FLOW: Flow to the gland is normal. ECHOGENICITY: The echotexture of the gland is homogeneous. NODULES: Nodules are identified in both thyroid lobes as described below: Nodule #: 1 Location: Right lower pole measuring 1.5 x 0.9 x 1.2 cm. Shape: Wider than tall (0 points) Margins: Smooth (0 points) Echotexture: Hypoechoic (2 points) Composition: Solid (2 points) Calcifications: Punctate calcifications (3 points) Total points: 7 TIRADS: TR5: Highly suspicious. Nodule #: 2 Location: Midportion of the left thyroid lobe measuring 0.8 x 0.4 x 0.6 cm. Shape: Wider than tall (0 points) Margins: Smooth (0 points) Echotexture: Hypoechoic (2 points) Composition: Mixed (1 point) Calcifications: None (0 points) Total points: 3 TIRADS: TR3: Mildly suspicious. US/US thyroid IMPRESSION: Highly suspicious nodule at the lower pole of the right thyroid lobe as described above. According to ACR TI-RADS guidelines (see below), ultrasound-guided fine-needle aspiration is recommended. [facility] Medical History Multinodular goiter (nontoxic) HLD (hyperlipidemia) Cytology examination positive for high risk human papillomavirus (HPV) Fibroids Thyroid mass Surgical History History of loop electrosurgical excision procedure (LEEP) Hx of dilation and curettage Family History Father Hypertension High cholesterol Mother Diabetes Hypertension High cholesterol FH: mental illness Depression Son No problems noted. 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 Extensive Outside records were reviewed, ultrasound of the thyroid from February 2022 showed a right lower pole 1.3 cm TI-RADS 3 category nodule.FNa biopsy of the right sided nodule per patient 2017 in [place] was benign per patient and also had in [facility] 2023, was also benign. Apparently had a new left sided nodule on US which was small and didnt meet criteria for biopsy I do not have records of this. She has had multiple TFTs over the past few areas which were all normal. Normal TFTs from September 2024. 01/02/2025: Ultrasound of the thyroid done, I reviewed the images myself which show homogeneous gland with normal vascularity. Right inferior nodule measures 1.5 X 0.9 next 1.2 cm which is solid hypoechoic with punctate echogenic foci, TR 5 category. This nodule meets criteria for FNA. Likely this is the 1 that is when biopsied before and was benign X 2 however based on the ultrasound report in 2021 I only have 1 dimension of the nodule which was 1.3 cm, and now in maximum dimension it measures somewhat bigger. Plus it is a high-risk nodule. I discussed both options with the patient regarding repeating a biopsy versus ultrasound surveillance. At this time we are leaning towards repeating a biopsy. Patient is agreeable. Left mid lobe subcentimeter 0.8 cm mixed cystic solid hypoechoic TR 3 category nodule. I explained that it is common to have thyroid nodules. About 95% of the time these nodules are benign. However if the nodule is > 1 cm in size or suspicious on ultrasound then a fine need aspiration biopsy is recommended. We discussed that a FNAB involves 4-5 passes with a small gauge needle and material obtained is sent off for cytology.If the cytopathology is benign then the nodule will be followed annually with repeat ultrasounds. However if it is suspicious or malignant, we will need to discuss further management. Indeterminate cytology can be further investigated with repeat FNA, genetic testing or empiric lobectomy. Malignant cytology is managed with either lobectomy or total thyroidectomy. We discussed briefly that thyroid cancer is, in most patients, an indolent disease that does not affect mortality. We will arrange for FNA of the right inferior 1.5 cm thyroid nodule at next available opening and patient will follow up with me in clinic thereafter for results and further decision making. She does not have any compressive symptoms. No major symptoms of hypothyroidism or hyperthyroidism. Plan: -scheduled for FNA of the right inferior 1.5 cm thyroid nodule and a follow up 2 weeks after to discuss results Plan See above Orders: Orders 2 US biopsy thyroid Today E04.2 - Nontoxic multinodular goiter Coding Level of Care Code Est Pt Level 4 (87281) Diagnoses Multinodular goiter (nontoxic) E04.2 Time Spent (min) 30
[2025-01-08 15:24] VITALS: BP 110/74; PULSE 80; O2SAT 98; BMI 28.4
== END 2025-01-08 15:51 | disposition home or self-care (01) ==
LOC: HO.ENCR 15:20
PROVIDERS: Visit Provider Student in an Organized Health Care Education/Training Program
DX: E04.2 Nontoxic multinodular goiter (principal)
CPT/HCPCS: 99214

== ENCOUNTER 2025-01-14 14:22 | Outpatient (REF) | payer OTHER, SELFPAY ==
[2025-01-24 14:25] LABS: Calprotectin, Fecal 13
== END 2025-01-14 14:23 | disposition home or self-care (01) ==
LOC: HO.LNP 14:22
PROVIDERS: Visit Provider Internal Medicine
DX: R10.13 Epigastric pain (principal); R19.4 Change in bowel habit
CPT/HCPCS: 83993; 87338

== ENCOUNTER 2025-01-15 10:38 | Outpatient (REF) | payer OTHER, SELFPAY ==
--- NOTE | 2025-01-15 11:07 | PCN2_ITS ---
Brief Operative Note Date of procedure: 01/15/25 Pre-op diagnosis: right lower pole 1.5 cm thyroid nodule FNA biopsy Post-op diagnosis: same Procedure: THYROID FINE NEEDLE ASPIRATION PROCEDURE NOTE ? PROCEDURE PERFORMED: Ultrasound-guided FNA of thyroid nodule ? OPERATORS: Dr. Lisa Armstrong ? INDICATION: right lower pole 1.5 cm thyroid nodule ; FNA performed to assess for malignancy ? DESCRIPTION OF PROCEDURE: The indications for FNA (to assess for malignancy) wer e reviewed with the patient in detail. Potential complications (e.g., bleeding, infection, damage to local structures, absence of clear diagnosis after FNA) were reviewed. Alternatives to FNA including conservative observation or surgery were described. The patient understood and agreed to proceed. This was documented by the signing of the written informed consent form. A time-out was performed to confirm the patient's identity and the site of planned FNA. The nodule of interest was identified using ultrasound (14 MHz linear array probe). The site of FNA was then draped in the usual fashion and carefully cleaned and prepared using alcohol swabs. The skin at the previously-identified site of needle insertion was iced and sprayed with numbing spray. Under ultrasound guidance, _4_ passes were performed using a 1.5-inch, 25-gauge needle, and sample was obtained via capillary action. The needle tip was clearly visualized to be within the nodule at the time of sampling for _4 of 4__ passes The patient tolerated the procedure well. There were no immediate complications. A small adhesive bandage was applied, and the patient was advised to take acetaminophen (rather than NSAIDs) for any discomfort and to report any signs of inflammation/infection or marked swelling. IMPRESSION: Technically successful ultrasound-guided fine needle aspiration of right lower pole 1.5 cm thyroid nodule. PLAN: The patient was advised that I will provide follow-up regarding the cytology result and any subsequent plans. Lisa Armstrong MD Endocrinology Attending Condition: stable Disposition: same day
== END 2025-01-15 10:39 | disposition home or self-care (01) ==
LOC: HO.US 10:38
PROVIDERS: Visit Provider Student in an Organized Health Care Education/Training Program
DX: E04.2 Nontoxic multinodular goiter (principal)
CPT/HCPCS: 10005; 88173; 88305

== ENCOUNTER → 2025-01-15 10:38 | Outpatient (BNV) | payer OTHER, SELFPAY | PROVIDERS: Visit Provider Student in an Organized Health Care Education/Training Program | DX: E04.1 Nontoxic single thyroid nodule (principal) | CPT/HCPCS: 10005 ==

== ENCOUNTER 2025-01-16 13:05 | Outpatient (AMB) | payer OTHER, SELFPAY ==
--- NOTE | 2025-01-16 13:07 | A.OFFVIS_ITS ---
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 Complaining of heavy menstrual cycles associated pelvic cramping and blood clots, the patient is requesting STD screening Last Pap/HPV was a year ago, was negative according to patient no records available Last Mammogram was a year ago was negative according to patient, no records available No previous screening colonoscopy PFSH Medical History Multinodular goiter (nontoxic) HLD (hyperlipidemia) Cytology examination positive for high risk human papillomavirus (HPV) Fibroids Thyroid mass Surgical History History of loop electrosurgical excision procedure (LEEP) Hx of dilation and curettage Family History Father Hypertension High cholesterol Mother Diabetes Hypertension High cholesterol FH: mental illness Depression Son No problems noted. 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 Cognitive needs: No Hearing needs: No Vision needs: No Female Reproductive History Menstrual Age of Menarche: 15 Duration of menses: 6-7 days Date of last menstrual period: 12/24/24 control method: none Total pregnancies: 2 Full term: 1 Date of last pap smear: 07/12/23 (negative pap smear, negative hpv) History of abnormal pap smear: Yes (2002 +HPV/ 2001 +HPV ) Date of Mammogram: 07/18/23 Review of Systems Const All systems reviewed & are unremarkable except as noted in HPI and below Card Reports as per HPI Resp Reports as per HPI GI Reports as per HPI and Reports no additional complaints Reports as per HPI Physical Exam Vital Signs: Last Vital Signs BP 118/74 01/16/25 13:15 BMI result Body Mass Index 28.4 Const General: cooperative, healthy appearing and comfortable Chest Chest palpation & inspection: normal inspection of the chest and normal palpation of entire chest wall Breast/axilla inspection: normal inspection of the breasts and normal inspection of the axillae Breast/axilla palpation: normal palpation of the breasts, normal palpation of the axillae and no axillary lymphadenopathy Resp Effort & Inspection: normal respiratory effort Auscultation: clear to auscultation bilaterally Percussion: percussion normal Cardio Palpation: normal PMI Rate: regular rate Rhythm: regular rhythm Heart sounds: no murmurs and no rubs Peripheral pulses: Peripheral pulses 2+ throughout GI Inspection: Yes normal to inspection Palpation (GI): Soft to palpation, nontender, no guarding, not rigid and No hepatosplenomegaly present Percussion: Yes normal to percussion Auscultation: normal bowel sounds Rectal Exam - Female: deferred General: Yes bladder normal to palpation External Female Exam: No lesion Speculum Exam - Vagina: normal appearance of the vagina, normal palpation, normal vaginal discharge and not erythematous Speculum Exam - Cervix: normal appearance of the cervix and normal palpation Bimanual exam- vagina & uterus: normal bimanual exam, normal palpation, uterine size normal, bladder normal to palpation, consistency normal and normal palpation Bimanual Exam- Adnexa, other: normal adnexae, no masses and no tenderness Assessment & Plan Assessment & Plan (1) Well woman exam: Code(s): Z01.419 - Encounter for gynecological examination (general) (routine) without abnormal findings Category: Medical Plan: Cotesting done. Mammogram ordered. GI referral placed for screening colonoscopy Counseled the patient about the recommended dietary allowance of 1000 mg of Calcium & 600 IU of vitamin D. The patient was instructed to perform monthly self-breast exams and to schedule an annual exam in a year; All questions answered and the patient verbalized understanding. Instructed the patient to schedule annual exam in a year (2) Abnormal uterine bleeding (AUB): Code(s): N93.9 - Abnormal uterine and vaginal bleeding, unspecified Category: Medical Plan: Co testing done, GC and chlamydia taken CBC, TSH, HCG, FSH/LH and pelvic ultrasound ordered. Discussed with the patient the different causes of abnormal bleeding including thyroid disorders, uterine and ovarian pathology, endometrial hyperplasia, carcinoma and other potential causes. Discussed with the patient the work up including CBC (to r/o anemia), TSH, FSH/LH, pelvic Ultrasound, endometrial biopsy to r/o endometrial pathology. All questions answered and the patient verbalized understanding. Instructed the patient to schedule an appointment for an endometrial biopsy in 2 weeks. (3) Screening for STD (sexually transmitted disease): Code(s): Z11.3 - Encounter for screening for infections with a predominantly sexual mode of transmission Category: Medical Plan: STD screening tests done includes: BV panel for trichomonas, GC/CT will send patient for serology std screening for HIV, RPR, Hep b s Ag, HepC Ab. Instructions given the patient to schedule a follow-up appointment for repeat serology screen in 6 months for possible false negatives. Orders: Orders Lutenizing Hormone Today N93.9 - Abnormal uterine and vaginal bleeding, unspecified TSH reflex Free T4 Today N93.9 - Abnormal uterine and vaginal bleeding, unspecified Hepatitis B Surface Antigen Today Z20.2 - Contact with and (suspected) exposure to infections with a predominantly sexual mode of transmission Hepatitis C Antibody Today Z20.2 - Contact with and (suspected) exposure to infections with a predominantly sexual mode of transmission HIV Ab/Ag Today Z20.2 - Contact with and (suspected) exposure to infections with a predominantly sexual mode of transmission Syphilis Screen Today Z20.2 - Contact with and (suspected) exposure to i nfections with a predominantly sexual mode of transmission MM tomosynthesis screening BI Today Z12.31 - Encounter for screening mammogram for malignant neoplasm of breast Complete Blood Count no Diff Today N93.9 - Abnormal uterine and vaginal bleeding, unspecified US pelvic and transvaginal Today N93.9 - Abnormal uterine and vaginal bleeding, unspecified Follicle Stimulating Hormone Today N93.9 - Abnormal uterine and vaginal bleeding, unspecified HCG Quantitative Today N93.9 - Abnormal uterine and vaginal bleeding, unspecified Referrals Gastroenterology Referral Z12.11 - Encounter for screening for malignant neoplasm of colon Coding Level of Care Code New Pt Level 3 (47692) Diagnoses Well woman exam Z01.419 Abnormal uterine bleeding (AUB) N93.9 Screening for STD (sexually transmitted disease) Z11.3
[2025-01-16 13:15] VITALS: BP 118/74; BMI 28.4
== END 2025-01-16 13:49 | disposition home or self-care (01) ==
LOC: HO.HWS 13:05
PROVIDERS: Visit Provider Obstetrics & Gynecology
DX: Z01.419 Encounter for gynecological examination (general) (routine) without abnormal findings (principal); N93.9 Abnormal uterine and vaginal bleeding, unspecified; Z11.3 Encounter for screening for infections with a predominantly sexual mode of transmission
CPT/HCPCS: 99203

== ENCOUNTER 2025-01-16 13:05 | Outpatient (REF) | payer OTHER, SELFPAY ==
[2025-01-16 14:03] LABS: Hematocrit 41.7 % (37.0-47.0); Hemoglobin 13.6 g/dl (12.0-16.0); Mean Corpuscular HGB Conc 32.6 g/dl (31.0-35.0); Mean Corpuscular Hemoglobin 27.0 pg (27.0-33.0); Mean Corpuscular Volume 82.7 fL (80.0-98.0); NRBC Abs Auto 0.000 X10*3/uL (0.0-0.012); NRBC Pct Auto 0.0 /100WBC (0.0-0.2); Platelet Count 332 X10*3/uL (160-400); Red Blood Count 5.04 X10*6/uL (4.20-5.50); White Blood Count 8.9 X10*3/uL (4.8-10.8)
[2025-01-17 06:38] LABS: Follicle Stimulating Hormone 2.9 mIU/mL
[2025-01-17 07:52] LABS: Syphilis Screen Nonreactive (Nonreactive)
[2025-01-17 08:13] LABS: HBsAGNum1 0.39 S/CO (0.00-0.99); HIV Num 1 0.06 S/CO (0.00-0.99); Hepatitis B Surface Antigen Negative (Negative); ~HepC Num1 0.08 S/CO (0.00-0.79); ~Hepatitis C Antibody Nonreactive (Nonreactive)
== END 2025-01-16 13:06 | disposition home or self-care (01) ==
LOC: HO.LAB 13:05
PROVIDERS: Visit Provider Obstetrics & Gynecology
DX: Z01.419 Encounter for gynecological examination (general) (routine) without abnormal findings (principal); N93.9 Abnormal uterine and vaginal bleeding, unspecified; Z11.3 Encounter for screening for infections with a predominantly sexual mode of transmission; Z20.2 Contact with and (suspected) exposure to infections with a predominantly sexual mode of transmission; Z12.31 Encounter for screening mammogram for malignant neoplasm of breast; Z12.11 Encounter for screening for malignant neoplasm of colon; Z11.4 Encounter for screening for human immunodeficiency virus [HIV]; Z11.59 Encounter for screening for other viral diseases
CPT/HCPCS: 36415; 83001; 83002; 84443; 84702; 85027; 86780; 86803; 87340; 87389; 99202

== ENCOUNTER 2025-01-16 14:11 | Outpatient (REF) | payer OTHER, SELFPAY ==
[2025-01-17 10:04] LABS: Bacterial Vaginosis PCR NEGATIVE (Negative); Candida Group PCR NOT DETECTED (Not Detect); Candida glab krusei PCR NOT DETECTED (Not Detect); Trichomonas vaginalis PCR NOT DETECTED (Not Detect)
[2025-01-17 11:28] LABS: CT PCR NOT DETECTED (Not Detect.); NG PCR NOT DETECTED (Not Detect.)
== END 2025-01-16 14:12 | disposition home or self-care (01) ==
LOC: HO.LNP 14:11
PROVIDERS: Visit Provider Obstetrics & Gynecology
DX: Z01.419 Encounter for gynecological examination (general) (routine) without abnormal findings (principal); Z11.3 Encounter for screening for infections with a predominantly sexual mode of transmission; Z11.8 Encounter for screening for other infectious and parasitic diseases; Z20.2 Contact with and (suspected) exposure to infections with a predominantly sexual mode of transmission; Z11.51 Encounter for screening for human papillomavirus (HPV); N93.9 Abnormal uterine and vaginal bleeding, unspecified
CPT/HCPCS: 81515; 87491; 87591; 87626; 88175

== ENCOUNTER 2025-01-21 15:06 | Outpatient (AMB) | payer OTHER, SELFPAY ==
--- NOTE | 2025-01-21 15:33 | A.OFFPC_ITS ---
Vital Signs 01/21/25 15:34 Height 5 ft 5.25 in Weight 171 lb BMI 28.2 BP 110/66 Blood Pressure Location Lt brachial Position Sitting Respiration 18 Pulse 78 Pulse Source Pulse Oximeter Temp 97.1 F Temp Source Temporal Artery Scan Pulse Oximetry (%) 97 Oxygen Delivery Method Room Air Intake Visit Reasons: 3 months Osteopathic Resident Required: No Accompanied by: Self / Same As Patient Allergies No Known Allergies Allergy (Verified 01/22/25 12:41) Medication List - Last Reconciled 01/21/25 by TIANNA Peters ferrous gluconate 18 mg PO DAILY multivitamin 1 tab PO DAILY trazodone 25 mg (1/2 x 50 mg) PO BEDTIME PRN Tobacco use date assessed: 01/21/25 Dental Screening Dental Screen Date: 01/21/25 Did you have a dental visit in the last 12 months?: Yes Did you have a dental problem in the last 6 months where you did not have access to dental care?: No Was dental information given to patient?: Patient has dentist HPI 3 months HPI Details The patient is a 49-year-old female presenting with painful menstruation. She reports significant pain during her menstrual periods, which has been severe enough to require medication. She has been using [id number] ibuprofen, but it has not been effective, leading to the use of ibuprofen 800 mg provided by a neighbor. The patient has been experiencing low ferritin levels, although her complete blood count remains within normal limits, indicating she is not anemic currently. She has been undergoing various tests with specialists, including an MBA INTERN and an [employer], to further investigate her symptoms. The patient also reports symptoms of depression, expressing a need to see both a therapist and a psychiatrist for management. She has been feeling very depressed and is seeking appropriate mental health support. Additionally, the patient has been advised to be cautious with ibuprofen use due to potential gastritis or gastrointestinal irritation. She has been instructed to monitor for signs of gastrointestinal bleeding, such as dark stools, and to ensure she eats before taking the medication. ON LICENSE OF [facility] Medical History Multinodular goiter (nontoxic) HLD (hyperlipidemia) Cytology examination positive for high risk human papillomavirus (HPV) Fibroids Thyroid mass Surgical History History of loop electrosurgical excision procedure (LEEP) Hx of dilation and curettage Family History Father Hypertension High cholesterol Mother Diabetes Hypertension High cholesterol FH: mental illness Depression Son No problems noted. 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 1. Little interest or pleasure in doing things: several days 2. Feeling down, depressed, or hopeless: several days 3. Trouble falling or staying asleep, or sleeping too much: several days 4. Feeling tired or having little energy: several days 5. Poor appetite or overeating: several days 6. Feeling bad about yourself - or that you are a failure or have let yourself or your family down: several days 7. Trouble concentrating on things, such as reading the newspaper or watching television: several days 8. Moving or speaking so slowly that other people could have noticed. Or the opposite - being so fidgety or restless that you have been moving around a lot more than usual: not at all 9. Thoughts that you would be better off or of hurting yourself in some way: several days Total score: 8 Depression Screening Interpretation: Positive Depression Screening Done: Yes Source: Developed by Drs. Devin Boland, Lilia Montejo, Shay Alexis and colleagues, with an educational brian from [employer]. Thrive Questionnaire Date Thrive assessed: 01/21/25 I am a: Patient What is your living situation today?: I have a steady place to live Within the past 12 months, did the food you bought not last and you didn't have the money to get more?: I choose not to answer this question Within the past 12 months, did you worry whether your food would run out before you got money to buy more?: I choose not to answer this question Do you have trouble paying for medicines?: I choose not to answer this question Do you have trouble getting transportation to medical appointments?: No Do you have trouble paying your heating and electricity bill?: No Do you have trouble taking care of your child, family member or friend?: No Do you have trouble with day-to-day activities such as bathing, preparing meals, shopping, managing finances, etc.?: Yes Are you currently unemployed and looking for a job?: No Are you interested in more education?: Yes Please select the resources that you would like help with: Education Currently or been in a relationship where the following occur: No concerns reported THRIVE Score: 0 AUDIT C Alcohol Use Questionnaire (AUDIT-C) 1. How often do you have a drink containing alcohol?: Monthly or less 2. How many drinks containing alcohol do you have on a typical day when you are drinking?: 1 or 2 3. How often do you have six or more drinks on one occasion?: Never Total Score: 1 Score Reviewed/Action Taken: No KOKO-7 AMB Questionnaire KOKO-7 Date KOKO - 7 assessed: 01/21/25 Feeling nervous, anxious, or on edge: 1 = Several days Not being able to stop or control worryin = Several days Worrying too much about different things: 1 = Several days Trouble relaxin = Several days Being so restless that it is hard to sit still: 1 = Several days Becoming easily annoyed or irritable: 1 = Several days Feeling afraid as if something awful might happen: 1 = Several days Total KOKO-7 score (0-4 normal; 5-9 mild; 10-14 moderate; 15-21 severe): 7 Source: Developed by Drs. Devin Boland, Lilia Montejo, Shay Alexis and colleagues, with an educational brian from [employer]. Review of Systems Const Denies body aches, Denies chills, Reports difficulty sleeping, Denies fever(s), Denies headache(s) and Denies poor appetite Eyes Reports no additional complaints ENT Denies dysphagia, Denies dizziness, Denies headache(s) and Denies odynophagia Card Denies chest pain, Denies syncope, Denies edema, Denies irregular heart rhythm, Denies lightheadedness and Denies dyspnea Resp Denies cough and Denies dyspnea GI Reports abdominal pain (epigastric), Reports bloating (Vibratory sensation in abdomen on and off), Denies constipation, Denies dysphagia, Denies diarrhea, Denies nausea, Denies odynophagia and Denies vomiting Reports abnormal menses, Reports menorrhagia and Reports dysmenorrhea Musc Reports back pain Skin/Breast Reports system reviewed and no additional complaints, except as documented Neuro Denies dizziness, Denies syncope and Denies headache(s) Psych Reports anxiety, Reports depression, Denies homicidal ideation and Denies suicidal ideation Physical exam (Primary Care) Vital Signs: Last Vital Signs Temp 97.1 F 01/21/25 15:34 Pulse 78 01/21/25 15:34 Resp 18 01/21/25 15:34 BP 110/66 01/21/25 15:34 Pulse Ox 97 01/21/25 15:34 Oxygen Delivery Method Room Air 01/21/25 15:34 BMI result Body Mass Index 28.2 Tobacco/Smoking Status: Tobacco use Status Tobacco use date assessed 01/21/25 01/21/25 15:41 Patient Tobacco Use Status Never used Tobacco 01/21/25 15:41 e-Cigarette/Vaping Use Never Used 01/21/25 15:41 PHQ-9: PHQ-9 Score PHQ-9: Total score 8 01/24/25 00:47 Depression Screening Interpretation: Positive Thrive Assessment: Date of Thrive Assessment Date Thrive assessed 01/21/25 01/21/25 15:41 Currently or been in a relationship where the following occur: No concerns reported Const General: cooperative, healthy appearing, comfortable and no acute distress Orientation/consciousness: patient oriented x3 HENMT Head: Yes normocephalic Ears: hearing grossly normal bilaterally General nose exam: Normal external nose present Eyes General: appearance normal, both eyes and all related structures Conjunctivae: conjunctivae normal Neck Neck: Yes full ROM and Yes no lymphadenopathy Resp Effort & Inspection: normal respiratory effort Auscultation: clear to auscultation bilaterally, no crackles, no rales, no rhonchi and no wheezes Cardio Rate: regular rate Rhythm: regular rhythm GI Palpation (GI): Soft to palpation and nontender Auscultation: normal bowel sounds General: Yes no CVA tenderness Back/Spine/Pelvis Back: no CVA tenderness Thoracic/Lumbar Spine: No lumbar spinal tenderness Skin General skin exam: no rashes or lesions noted Neuro General: patient oriented x3 Gait exam (Neuro): Normal gait present Extrem General: Yes normal to inspection, Yes full ROM and No edema Psych Affect: normal affect Attitude: cooperative Insight: Good insight present (Psych) Judgement: Good judgement present (Psych) Results Reviewed Results Reviewed: Laboratory Tests 01/08/25 01/16/25 01/25/25 15:10 13:53 07:30 WBC 8.9 RBC 5.04 Hgb 13.6 Hct 41.7 MCV 82.7 MCH 27.0 MCHC 32.6 RDW 14.2 Plt Count 332 MPV 10.1 Sodium 139 Potassium 4.5 Chloride 105 Carbon Dioxide 26 Anion Gap 13 BUN 16 Creatinine 0.93 Estimated GFR > 60 Random Glucose 96 Calcium 9.3 Iron 120 TIBC 292 % Saturation 41 Unsat Iron Binding 172 Ferritin 7 L Total Bilirubin 0.3 AST 20 ALT 16 Alkaline Phosphatase 93 C-Reactive Protein 0.11 Total Protein 7.0 Albumin 4.4 Triglycerides 146 Cholesterol 233 H LDL Cholesterol, Calc 156 H HDL Cholesterol 48 Lipase 34 25-OH Vitamin D Total 41.5 TSH 0.92 Free T4 1.15 Urine Color Yellow Urine Appearance Clear Urine pH 7.0 Ur Specific [place] 1.010 Urine Protein Negative Urine Glucose (UA) Negative Urine Ketones Negative Urine Blood Negative Urine Nitrite Negative Ur Leukocyte Esterase Negative Coding Level of Care Code Est Pt Level 3 (78754) Diagnoses Anxiety F41.9 Pure hypercholesterolemia E78.00 Epigastric pain R10.13 Abdominal location: epigastric Change in bowel habit R19.4 Fibroids D21.9 Insomnia, unspecified type G47.00 Insomnia type: unspecified Thyroid mass E07.9 Depression, unspecified depression type F32.A Depression Type: unspecified Time Spent (min) 36 Assessment & Plan Assessment & Plan (1) Anxiety: Code(s): F41.9 - Anxiety disorder, unspecified Category: Medical Plan: Encouraged CBT Psychiatry referral placed (2) Pure hypercholesterolemia: Code(s): E78.00 - Pure hypercholesterolemia, unspecified Category: Medical Plan: Total cholesterol decreased from 271 to 233 and LDL decreased from 183 to 156 Discussed lifestyle modifications including dietary changes and physical activity Patient was to continue making dietary changes We will repeat lipid panel in 3 months (3) Abdominal pain: Code(s): R10.9 - Unspecified abdominal pain Category: Medical Qualifiers: Abdominal location: epigastric Qualified Code(s): R10.13 - Epigastric pain Plan: Abdominal pain decreased some. Follow up with GI as scheduled (4) Change in bowel habit: Code(s): R19.4 - Change in bowel habit Category: Medical Plan: Follow up with GI as scheduled (5) Fibroids: Code(s): D21.9 - Benign neoplasm of connective and other soft tissue, unspecified Category: Medical Plan: The patient was referred to OBGYN for further evaluation. Follow up with Ob as scheduled (6) Insomnia: Code(s): G47.00 - Insomnia, unspecified Category: Medical Qualifiers: Insomnia type: unspecified Qualified Code(s): G47.00 - Insomnia, unspecified Plan: Sleep hygiene: Exercise regularly, but not within 4 hour of bedtime. Limit fluid intake and avoid large meals in the evening hours. Limit overall caffeine, tobacco, and alcohol intake; no night cap. Maintain a regular sleep- wake cycle without naps in the daytime. Lie down to sleep only when feeling sleepy; leave the bed if unable to fall asleep within 20 minutes; stay in bed for only the hours actually sleeping(but not less than 5 hour in 24 hours). Continue trazodone 25 mg at bedtime p.r.n. (7) Thyroid mass: Code(s): E07.9 - Disorder of thyroid, unspecified Category: Medical Plan: Patient was seen by Endocrine and had a fine-needle aspiration biopsy of the right lower pole 1.5 cm nodule came back with benign cytology. This yields a 3% chance of malignancy. The plan is to repeat an ultrasound in 1 year. (8) Depression: Code(s): F32.A - Depression, unspecified Category: Medical Qualifiers: Depression Type: unspecified Qualified Code(s): F32.A - Depression, unspecified Plan: Patient reports that she has been feeling increasingly depressed and she will read like to see someone for both counseling and possibly medication. We will refer the patient psychiatry for further eval at [facility] in [place]. Plan Plan Patient was informed and verbally consented to the use of an ambient scribe for clinic note documentation during this visit. 1. Dysmenorrhea The patient will be prescribed ibuprofen 800 mg to manage menstrual pain, with instructions to use it only during menstruation and to monitor for gastrointestinal side effects. She is advised to eat before taking the medication to minimize gastrointestinal irritation. 2. Low Ferritin Levels The patient is not currently anemic, but low ferritin levels will be monitored, and further evaluation by specialists is ongoing. 3. Depression The patient will be referred to both a therapist and a psychiatrist for comprehensive mental health support. 4. Gastritis The patient is advised to monitor for signs of gastrointestinal bleeding and to use ibuprofen cautiously. Orders: Orders Comprehensive [place]. Panel Fast 3 Months F41.9 - Anxiety disorder, unspecified, R00.2 - Palpitations, E78.00 - Pure hypercholesterolemia, unspecified, E07.9 - Disorder of thyroid, unspecified, E04.2 - Nontoxic multinodular goiter, R11.2 - Nausea with vomiting, unspecified, D21.9 - Benign neoplasm of connective and other soft tissue, unspecified, G47.00 - Insomnia, unspecified Lipid Panel 3 Months F41.9 - Anxiety disorder, unspecified, R00.2 - Palpitations, E78.00 - Pure hypercholesterolemia, unspecified, E07.9 - Disorder of thyroid, unspecified, E04.2 - Nontoxic multinodular goiter, R11.2 - Nausea with vomiting, unspecified, D21.9 - Benign neoplasm of connective and other soft tissue, unspecified, G47.00 - Insomnia, unspecified Vitamin D 25-OH Total 3 Months F41.9 - Anxiety disorder, unspecified, R00.2 - Palpitations, E78.00 - Pure hypercholesterolemia, unspecified, E07.9 - Disorder of thyroid, unspecified, E04.2 - Nontoxic multinodular goiter, R11.2 - Nausea with vomiting, unspecified, D21.9 - Benign neoplasm of connective and other soft tissue, unspecified, G47.00 - Insomnia, unspecified TSH reflex Free T4 3 Months F41.9 - Anxiety disorder, unspecified, R00.2 - Palpitations, E78.00 - Pure hypercholesterolemia, unspecified, E07.9 - Disorder of thyroid, unspecified, E04.2 - Nontoxic multinodular goiter, R11.2 - Nausea with vomiting, unspecified, D21.9 - Benign neoplasm of connective and other soft tissue, unspecified, G47.00 - Insomnia, unspecified Lipid Panel 01/25/25 E78.00 - Pure hypercholesterolemia, unspecified CK, Total+Isoenzymes, Serum 3 Months F41.9 - Anxiety disorder, unspecified, R00.2 - Palpitations, E78.00 - Pure hypercholesterolemia, unspecified, E07.9 - Disorder of thyroid, unspecified, E04.2 - Nontoxic multinodular goiter, R11.2 - Nausea with vomiting, unspecified, D21.9 - Benign neoplasm of connective and other soft tissue, unspecified, G47.00 - Insomnia, unspecified UA CC w/rflx Micro + Cult 3 Months F41.9 - Anxiety disorder, unspecified, R00.2 - Palpitations, E78.00 - Pure hypercholesterolemia, unspecified, E07.9 - Disorder of thyroid, unspecified, E04.2 - Nontoxic multinodular goiter, R11.2 - Nausea with vomiting, unspecified, D21.9 - Benign neoplasm of connective and other soft tissue, unspecified, G47.00 - Insomnia, unspecified Medications: New ibuprofen 800 mg PO Q8H PRN 30 tabs 0RF pain
[2025-01-21 15:34] VITALS: BP 110/66; PULSE 78; RESP 18; TEMP 36.2; O2SAT 97; BMI 28.2
== END 2025-01-21 16:24 | disposition home or self-care (01) ==
LOC: HO.HMCH 15:07
DX: F41.9 Anxiety disorder, unspecified (principal); E78.00 Pure hypercholesterolemia, unspecified; R10.13 Epigastric pain; R19.4 Change in bowel habit; D21.9 Benign neoplasm of connective and other soft tissue, unspecified; G47.00 Insomnia, unspecified; E07.9 Disorder of thyroid, unspecified; F32.A Depression, unspecified

== ENCOUNTER → 2025-01-21 15:06 | Outpatient (BNVA) | payer OTHER, SELFPAY | DX: R19.4 Change in bowel habit (principal); N94.6 Dysmenorrhea, unspecified; F32.A Depression, unspecified; F41.9 Anxiety disorder, unspecified; E78.00 Pure hypercholesterolemia, unspecified; D21.9 Benign neoplasm of connective and other soft tissue, unspecified; G47.00 Insomnia, unspecified; E07.9 Disorder of thyroid, unspecified; R79.89 Other specified abnormal findings of blood chemistry; K29.70 Gastritis, unspecified, without bleeding | CPT/HCPCS: 99212 ==

== ENCOUNTER 2025-01-22 | Outpatient (REF) | payer OTHER, SELFPAY | END 2025-01-22 00:01 | disposition home or self-care (01) | LOC: HO.LNP | PROVIDERS: Visit Provider Internal Medicine | DX: R10.13 Epigastric pain (principal) | CPT/HCPCS: 83013 ==

== ENCOUNTER 2025-01-22 12:33 | Outpatient (AMB) | payer OTHER, SELFPAY ==
[2025-01-22 12:35] VITALS: BP 122/86; PULSE 74; O2SAT 100; BMI 28.4
--- NOTE | 2025-01-22 12:35 | MHC.OFFVIS ---
Vital Signs 01/22/25 12:35 Height 5 ft 5.25 in Weight 171 lb 11.841 oz BMI 28.4 BP 122/86 Blood Pressure Location Lt brachial Position Sitting Pulse 74 Pulse Source Pulse Oximeter Pulse Oximetry (%) 100 Oxygen Delivery Method Room Air Intake Visit Reasons: Biopsy f/u Intake Note: Patient present today for biopsy results. 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 HPI Outside records were reviewed, ultrasound of the thyroid from February 2022 showed a right lower pole 1.3 cm TI-RADS 3 category nodule.FNa biopsy of the right sided nodule per patient 2017 in [place] was benign per patient and also had in [facility] 2023, was also benign. Apparenlty had a new left sided nodule on US whihc was small and didnt meet criteria for biopsy I do not have records of this. Normal TFTs from September 2024. Patient currently denies heat or cold intolerance, diarrhea or constipation, hair loss, palpitation, weight changes, mood changes, low energy, changes in appearance of eyes or vision changes, tremors, increased diaphoresis or dry skin. ?intermittent palpitations, saw card tender in DR and workup was remarkable. reports some increased anxiety. Patient denies any difficulty swallowing, pain on swallowing or difficulty breathing. reports intermittent hoarseness. Patient denies any history of childhood neck radiation. Denies having ever used lithium, amiodarone or biotin supplements. Patient denies any family history of thyroid cancer or thyroid disease. 01/02/2025: Ultrasound of the thyroid done, I reviewed the images myself which show homogeneous gland with normal vascularity. Right inferior nodule measures 1.5 X 0.9 next 1.2 cm which is solid hypoechoic with punctate echogenic foci, TR 5 category. Left mid lobe subcentimeter 0.8 cm mixed cystic solid hypoechoic TR 3 category nodule. Interval history 01/15/2025: FNA biopsy of the right lower pole 1.5 cm nodule came back with benign cytology, [place] category 2. Physical exam General: sitting comfortably in no acute distress HEENT: normocephalic/atraumatic, Neck: supple, 1 cm right-sided nodule Cardiac: normal heart sounds Pulm: normal breath sounds B/L, no added breath sounds Abd: not distended, no tenderness Extremities: no edema, no signs of myxedema Neuro: AAO x3, Speech: normal, no facial droop, moving all 4 extremities Laboratory Tests 10/16/24 11:47 TSH 1.35 Free T4 1.08 Total T3 75 L EXAMINATION: US THYROID 01/02/2025 HISTORY: E04.2 - Nontoxic multinodular goiter TECHNIQUE: Real-time grayscale ultrasound imaging was performed and images were reviewed. COMPARISON: There are no prior studies available for comparison. FINDINGS: SIZE: The right thyroid lobe measures 5.2 x 1.5 x 1.6 cm. The left thyroid lobe measures 4.5 x 1.3 x 2.2 cm. The isthmus measures 3 mm. FLOW: Flow to the gland is normal. ECHOGENICITY: The echotexture of the gland is homogeneous. NODULES: Nodules are identified in both thyroid lobes as described below: Nodule #: 1 Location: Right lower pole measuring 1.5 x 0.9 x 1.2 cm. Shape: Wider than tall (0 points) Margins: Smooth (0 points) Echotexture: Hypoechoic (2 points) Composition: Solid (2 points) Calcifications: Punctate calcifications (3 points) Total points: 7 TIRADS: TR5: Highly suspicious. Nodule #: 2 Location: Midportion of the left thyroid lobe measuring 0.8 x 0.4 x 0.6 cm. Shape: Wider than tall (0 points) Margins: Smooth (0 points) Echotexture: Hypoechoic (2 points) Composition: Mixed (1 point) Calcifications: None (0 points) Total points: 3 TIRADS: TR3: Mildly suspicious. US/US thyroid IMPRESSION: Highly suspicious nodule at the lower pole of the right thyroid lobe as described above. According to ACR TI-RADS guidelines (see below), ultrasound-guided fine-needle aspiration is recommended. [facility] Medical History Multinodular goiter (nontoxic) HLD (hyperlipidemia) Cytology examination positive for high risk human papillomavirus (HPV) Fibroids Thyroid mass Surgical History History of loop electrosurgical excision procedure (LEEP) Hx of dilation and curettage Family History Father Hypertension High cholesterol Mother Diabetes Hypertension High cholesterol FH: mental illness Depression Son No problems noted. 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 Extensive Outside records were reviewed, ultrasound of the thyroid from February 2022 showed a right lower pole 1.3 cm TI-RADS 3 category nodule.FNa biopsy of the right sided nodule per patient 2017 in [place] was benign per patient and also had in [facility] 2023, was also benign. Apparently had a new left sided nodule on US which was small and didnt meet criteria for biopsy I do not have records of this. She has had multiple TFTs over the past few areas which were all normal. Normal TFTs from September 2024. 01/02/2025: Ultrasound of the thyroid done, I reviewed the images myself which show homogeneous gland with normal vascularity. Right inferior nodule measures 1.5 X 0.9 next 1.2 cm which is solid hypoechoic with punctate echogenic foci, TR 5 category. This nodule meets criteria for FNA. Likely this is the 1 that is when biopsied before and was benign X 2 however based on the ultrasound report in 2021 I only have 1 dimension of the nodule which was 1.3 cm, and now in maximum dimension it measures somewhat bigger. Plus it is a high-risk nodule. I discussed both options with the patient regarding repeating a biopsy versus ultrasound surveillance. At this time we are leaning towards repeating a biopsy. Patient is agreeable. Left mid lobe subcentimeter 0.8 cm mixed cystic solid hypoechoic TR 3 category nodule. 01/15/2025: FNA biopsy of the right lower pole 1.5 cm nodule came back with benign cytology, [place] category 2. I explained to the patient benign results yield less than 3% chance of malignancy. At this point we will plan to repeat an ultrasound in 1 year. She does not have any compressive symptoms. No major symptoms of hypothyroidism or hyperthyroidism. Plan: -ordered thyroid ultrasound to be done in November 2025 prior to follow up in December 2025 -ordered TSH with a reflex free T4 to be done prior to follow up in 1 year Plan see above Orders: Orders US thyroid 12/08/25 E04.2 - Nontoxic multinodular goiter TSH reflex Free T4 12/08/25 E04.2 - Nontoxic multinodular goiter Patient Instructions: Do ultrasound of the thyroid in November 2025, someone will call you to schedule this , please make sure this is done a few week prior to your next follow up in December 2025 Do thyroid blood work a few days prior to fup Coding Level of Care Code Est Pt Level 3 (59819) Diagnoses Multinodular goiter (nontoxic) E04.2
== END 2025-01-22 12:54 | disposition home or self-care (01) ==
LOC: HO.ENCR 12:34
PROVIDERS: Visit Provider Student in an Organized Health Care Education/Training Program
DX: E04.2 Nontoxic multinodular goiter (principal)
CPT/HCPCS: 99213

== ENCOUNTER → 2025-01-22 12:33 | Outpatient (BNVA) | payer OTHER, SELFPAY | PROVIDERS: Visit Provider Student in an Organized Health Care Education/Training Program | DX: E04.2 Nontoxic multinodular goiter (principal); R10.13 Epigastric pain | CPT/HCPCS: 99211; 99212 ==

== ENCOUNTER 2025-01-22 12:58 | Outpatient (AMB) | payer OTHER, SELFPAY ==
--- NOTE | 2025-01-22 13:15 | AM.OFFVISNUR ---
Intake Visit Reasons: H Pylori Intake Note: Patient presents for collection of?H Pylori?breath test. Patient has been fasting for 1 hour (nothing to eat, drink, no chewing gum or smoking) has not taken any antacid medication for at least 2 weeks and has no allergies to artificial sweeteners.?? Allergies No Known Allergies Allergy (Verified 01/22/25 12:41) Assessment & Plan Assessment & Plan (1) Abdominal pain: Code(s): R10.9 - Unspecified abdominal pain Category: Medical Qualifiers: Abdominal location: epigastric Qualified Code(s): R10.13 - Epigastric pain Plan Patient presents for collection of?H Pylori?breath test. Patient has been fasting for 1 hour (nothing to eat, drink, no chewing gum or smoking) has not taken any antacid medication for at least 2 weeks and has no allergies to artificial sweeteners.???This test checks for an overgrowth of bacteria in your stomach. We all have bacteria but some may have more than others. It is treatable. if the test comes back negative there is nothing else to do. If the test result is positive we will treat you with 2 antibiotics and a medication to decrease the acid in your stomach (PPI) for 2 weeks. Two weeks after you have completed the treatment we will retest you to make sure the overgrowth has resolved. Patient Instructions: Process for specimen collection and reason for testing was explained to the patient. Specimen collection. Patient instructed to take a deep breath and then exhale into the blue bag, filling it up as much as possible. Patient instructed to drink a mixture of water and the artificial sweetener with a straw. A 15 minute wait period was observed. Patient instructed to take a deep breath and then exhale into the pink bag, filling it up as much as possible.?? Coding Level of Care Code Established Pt Est Pt Level 1 (01385) Patient Type Established Medical Decision Making Straight Forward Diagnoses Epigastric pain R10.13 Abdominal location: epigastric
== END 2025-01-22 13:28 | disposition home or self-care (01) ==
LOC: HO.HGI 12:59
PROVIDERS: Visit Provider Internal Medicine
DX: R10.13 Epigastric pain (principal)

== ENCOUNTER 2025-01-25 07:14 | Outpatient (REF) | payer OTHER, SELFPAY ==
[2025-01-25 08:48] LABS: Cholesterol 233 mg/dL (<200); HDL Cholesterol 48 mg/dL (>40); Triglycerides 146 mg/dL (<150)
== END 2025-01-25 07:15 | disposition home or self-care (01) ==
LOC: HO.LAB 07:14
DX: E78.00 Pure hypercholesterolemia, unspecified (principal)
CPT/HCPCS: 36415; 80061

== ENCOUNTER 2025-02-27 14:19 | Outpatient (REF) | payer OTHER, SELFPAY ==
--- NOTE | ~2025-02-27 | US_ITS ---
EXAMINATION: US PELVIS CLINICAL INFORMATION: N93.9 - Abnormal uterine and vaginal bleeding, unspecified COMPARISON: None available. TECHNIQUE: Ultrasound of the pelvis is performed using both transabdominal and transvaginal transducers along with Doppler. Transvaginal imaging is performed due to inadequate visualization transabdominally. FINDINGS: Uterus: The uterus is anteverted and measures 9.4 x 5.5 x 7.0 cm. The double wall endometrial thickness is 6 mm. Hypoechoic regions are present in the uterus. In the posterior upper uterine body there is an intramural leiomyoma that measures 10 x 8 x 8 mm. In the anterior upper uterine body there is an intramural leiomyoma that measures 10 x 8 x 8 mm. Adnexa: Both ovaries are visualized. There is normal color flow to the adnexa. There is no ovarian torsion. There is no pelvic ascites or fluid collection. Right ovary measures 2.3 x 2.5 x 2.5 cm. There is 2.2 cm anechoic simple cyst with thin lopez. Left ovary measures 3.1 x 1.2 x 1.5 cm. There is a 1.1 cm simple cyst with no internal septation. US/US pelvic and transvaginal IMPRESSION: There are 2 small intramural leiomyomas in the upper uterine body, one anterior and one posterior. Electronically signed by: Roni Henderson MD 02/27/2025 03:14 PM EDT
== END 2025-02-27 14:20 | disposition home or self-care (01) ==
LOC: HO.HMGCX 14:19
PROVIDERS: Visit Provider Obstetrics & Gynecology
DX: N93.9 Abnormal uterine and vaginal bleeding, unspecified (principal)
CPT/HCPCS: 76830; 76856

== ENCOUNTER → 2025-02-27 14:33 | Outpatient (BNV) | payer OTHER, SELFPAY | PROVIDERS: Visit Provider Radiology Diagnostic Radiology | DX: D25.1 Intramural leiomyoma of uterus (principal); N93.9 Abnormal uterine and vaginal bleeding, unspecified | CPT/HCPCS: 76830; 76856 ==

== ENCOUNTER 2025-03-04 13:59 | Outpatient (REF) | payer OTHER, SELFPAY | END 2025-03-04 14:00 | disposition home or self-care (01) | LOC: HO.LNP 13:59 | PROVIDERS: Visit Provider Obstetrics & Gynecology | DX: N93.9 Abnormal uterine and vaginal bleeding, unspecified (principal); Z32.02 Encounter for pregnancy test, result negative | CPT/HCPCS: 58100; 81025; 88305 ==

== ENCOUNTER 2025-03-04 13:59 | Outpatient (AMB) | payer OTHER, SELFPAY ==
--- NOTE | 2025-03-04 14:02 | MHC.OFFVIS ---
Vital Signs 03/04/25 14:16 Height 5 ft 5 in Weight 170 lb BMI 28.3 BP 124/78 Blood Pressure Location Lt brachial Position Sitting Intake Visit Reasons: emb/lab results/ultrasound results Intake Note: Patient here for u/s results and and amb. Patient also concern sexual partner found a wart? on penis concerned about what this means for her pap smear results. Information Interpreted: non-clinical & clinical Testing Manager: Testing Manager Present (buck) Accompanied by: Self / Same As Patient Allergies No Known Allergies Allergy (Verified 03/04/25 14:10) Medication List - Last Reconciled 03/04/25 by Halima Orourke LPN ferrous gluconate 18 mg PO DAILY ibuprofen 800 mg PO Q8H PRN multivitamin 1 tab PO DAILY trazodone 25 mg (1/2 x 50 mg) PO BEDTIME PRN Is last menstrual period known: Yes Last menstrual period: 02/15/25 Do you need a note to return to daycare/school/sports/work: No HPI Comments Details: Presenting for [facility] Medical History Multinodular goiter (nontoxic) HLD (hyperlipidemia) Cytology examination positive for high risk human papillomavirus (HPV) Fibroids Thyroid mass Surgical History History of loop electrosurgical excision procedure (LEEP) Hx of dilation and curettage Family History Father Hypertension High cholesterol Mother Diabetes Hypertension High cholesterol FH: mental illness Depression Son No problems noted. Other HLD (hyperlipidemia) Social History Household Members: None Housing: Apartment Alcohol intake: never Patient Tobacco Use Status: Never used Tobacco e-Cigarette/Vaping Use: Never Used service: No Current occupational status: employed Current occupation: [employer] Cognitive needs: No Hearing needs: No Vision needs: No Female Reproductive History Menstrual Age of Menarche: 15 Date of last menstrual period: 02/15/25 control method: condoms Total pregnancies: 1 Number of Living Children: 1 Date of last pap smear: 01/17/25 History of abnormal pap smear: No Review of Systems Const All systems reviewed & are unremarkable except as noted in HPI and below Reports as per HPI and Reports no additional complaints GI Reports no additional complaints Reports no additional complaints Physical Exam Vital Signs: Last Vital Signs BP 124/78 03/04/25 14:16 BMI result Body Mass Index 28.3 Office Procedures Endometrial Biopsy Details: The patient was counseled regarding the indication and benefits of endometrial sampling to rule out endometrial pathology including not limited to endometrial hyperplasia or endometrial cancer and others; The alternatives (Either do nothing vs. hysteroscopy D&C) & the risks were discussed with the patient including but not limited: pain, uterine perforation, bleeding, infection, possible injury to bladder, bowel, ureter, possible need for blood transfusion with all its possible risks. The patient verbalized understanding all questions answered and signed consent. Urine test done in the office was negative The patient was placed into the dorsal lithotomy position; a speculum was inserted in the vagina. Using aseptic technique for the procedure, the cervix was cleansed with Betadine. The anterior lip of the cervix was grasped with a single tooth tenaculum. The uterus was sounded to 7 cm with a 4 mm Pipelle was used. Tissues samples were obtained and placed in formalin, in a patient labeled container and sent to the pathology department. At the end of the procedure, there was minimal bleeding noted The patient tolerated the procedure well and was discharged in good condition with the following instructions: Nothing in the vagina until the bleeding stops. No sex until the bleeding stops, to call if any of the following occurs: fever (>100.4), flu-like symptoms, abdominal pain, heavy bleeding, four smelling vaginal discharge. The patient was instructed to schedule a Follow up appointment in 2 weeks to discuss pathology results of the biopsy and treatment options. This note was generated with a voice recognition program. Some errors may have been overlooked during the review of this note. Sometimes these errors may affect the content or meaning of a given sentence. [id number] Biopsy Results AMB Test Urine AMB Test Urine Negative Last Edit by Halima Orourke LPN on 03/04/25 14:17 Results Reviewed Results Reviewed: Laboratory Last Values [facility]st Clinic Negative 03/04/25 14:17 Assessment & Plan Assessment & Plan (1) Abnormal uterine bleeding (AUB): Code(s): N93.9 - Abnormal uterine and vaginal bleeding, unspecified Category: Medical Plan: EMB done, see procedure note Orders: Orders AMB HCG Urine Test Today Z32.02 - Encounter for test, result negative AMB Endometrial Biopsy Today N93.9 - Abnormal uterine and vaginal bleeding, unspecified Coding Level of Care Code Procedure Only Diagnoses Abnormal uterine bleeding (AUB) N93.9 CPT Codes Endometrial Biopsy - CPT: 22871-[id number] Biopsy ([id number])
[2025-03-04 14:16] VITALS: BP 124/78; BMI 28.3
== END 2025-03-04 14:31 | disposition home or self-care (01) ==
LOC: HO.HWS 14:00
PROVIDERS: Visit Provider Obstetrics & Gynecology
DX: N93.9 Abnormal uterine and vaginal bleeding, unspecified (principal); Z32.02 Encounter for pregnancy test, result negative
CPT/HCPCS: 58100

== ENCOUNTER 2025-03-07 16:11 | Outpatient (REF) | payer OTHER, SELFPAY | END 2025-03-07 16:12 | disposition home or self-care (01) | LOC: HO.MAMMO 16:11 | PROVIDERS: Visit Provider Obstetrics & Gynecology | DX: Z12.31 Encounter for screening mammogram for malignant neoplasm of breast (principal) | CPT/HCPCS: 77063; 77067 ==

== ENCOUNTER → 2025-03-07 16:12 | Outpatient (BNV) | payer OTHER, SELFPAY | PROVIDERS: Visit Provider Internal Medicine | DX: Z12.31 Encounter for screening mammogram for malignant neoplasm of breast (principal) | CPT/HCPCS: 77063; 77067 ==

== ENCOUNTER 2025-04-01 11:24 | Outpatient (AMB) | payer OTHER, SELFPAY ==
--- NOTE | 2025-04-01 11:27 | A.OFFVIS_ITS ---
Intake Visit Reasons: EMB Results Allergies No Known Allergies Allergy (Verified 03/04/25 14:10) Is last menstrual period known: Yes Last menstrual period: 03/13/25 HPI Comments Details: The patient is presenting for follow-up to discuss the results of her abnormal uterine bleeding workup and options of treatment. The following workup was done.: H&H= 13.6/41.7 TSH, hCG, GC and chlamydia were negative. FSH/LH= 2.9/1.6 Endometrial biopsy pathology showed the following: Early secretory endometrium; no atypia or hyperplasia identified Co testing was done was negative. Mammogram results pending Pelvic ultrasound showed the following: Uterus: The uterus is anteverted and measures 9.4 x 5.5 x 7.0 cm. The double wall endometrial thickness is 6 mm. Hypoechoic regions are present in the uterus. In the posterior upper uterine body there is an intramural leiomyoma that measures 10 x 8 x 8 mm. In the anterior upper uterine body there is an intramural leiomyoma that measures 10 x 8 x 8 mm. Adnexa: Both ovaries are visualized. There is normal color flow to the adnexa. There is no ovarian torsion. There is no pelvic ascites or fluid collection. Right ovary measures 2.3 x 2.5 x 2.5 cm. There is 2.2 cm anechoic simple cyst with thin lopez. Left ovary measures 3.1 x 1.2 x 1.5 cm. There is a 1.1 cm simple cyst with no internal septation. [facility] Medical History Multinodular goiter (nontoxic) HLD (hyperlipidemia) Cytology examination positive for high risk human papillomavirus (HPV) Fibroids Thyroid mass Surgical History History of loop electrosurgical excision procedure (LEEP) Hx of dilation and curettage Family History Father Hypertension High cholesterol Mother Diabetes Hypertension High cholesterol FH: mental illness Depression Son No problems noted. Other HLD (hyperlipidemia) Social History Household Members: None Housing: Apartment Alcohol intake: never Patient Tobacco Use Status: Never used Tobacco e-Cigarette/Vaping Use: Never Used service: No Current occupational status: employed Current occupation: [employer] Cognitive needs: No Hearing needs: No Vision needs: No Female Reproductive History Menstrual Age of Menarche: 15 Date of last menstrual period: 03/13/25 Review of Systems Const All systems reviewed & are unremarkable except as noted in HPI and below Reports as per HPI and Reports no additional complaints Card Reports as per HPI and Reports no additional complaints Resp Reports as per HPI and Reports no additional complaints GI Reports no additional complaints Reports no additional complaints Assessment & Plan Assessment & Plan (1) Abnormal uterine bleeding (AUB): Code(s): N93.9 - Abnormal uterine and vaginal bleeding, unspecified Category: Medical Plan: Discussed with the patient the results of the work up done and options of treatment including Lysteda, control pills, Mirena IUD, endometrial ablation and hysterectomy. All pros, cons, risks and benefits if each option was discussed with the patient and the patient decided to go ahead with Mirena IUD so a more detailed discussion about it was conducted including mechanism of action, risks (uterine perforation, infection, injury to bladder, bowel, displacement, and others) benefits (hypo menorrhea, amenorrhea, ...). GC/CT were taken and the patient was instructed to schedule Mirena IUD insertion on day 1-5 of next cycle . All questions answered, the patient verbalized understanding (2) Uterine myoma: Code(s): D25.9 - Leiomyoma of uterus, unspecified Category: Medical Plan: Discussed with the patient the findings on pelvic ultrasound & the risk of myosarcoma; in addition reviewed with the patient that malignancy and pre malignancy cannot be ruled out without hysterectomy for pathological evaluation ; furthermore, explained to the patient the limitation of pelvic ultrasound and endometrial biopsy in the setting. Discussed with the patient the options of treatment including expectant management versus hysterectomy; the pros and cons, risks benefits of each approach were discussed with the patient including the fact that in cases of myosarcoma, surgical treatment can lead to early diagnosis and positively affects the prognosis; after further discussion, the patient decided to proceed with expectant management. Will repeat pelvic ultrasound periodically. Instructions given to patient to call in case any of the following occurs: pressure symptoms, abnormal uterine bleeding, pelvic pain; and to schedule a six-months pelvic ultrasound (order placed) and a follow-up appointment . All questions answered, the patient verbalized understanding and agreed with the plan . Orders: Orders US pelvic and transvaginal 6 Months D25.9 - Leiomyoma of uterus, unspecified Coding Level of Care Code Est Pt Level 3 (81162) Diagnoses Abnormal uterine bleeding (AUB) N93.9 Uterine myoma D25.9
== END 2025-04-01 11:51 | disposition home or self-care (01) ==
LOC: HO.HWS 11:24
PROVIDERS: Visit Provider Obstetrics & Gynecology
DX: N93.9 Abnormal uterine and vaginal bleeding, unspecified (principal); D25.9 Leiomyoma of uterus, unspecified
CPT/HCPCS: 99213

== ENCOUNTER → 2025-04-01 11:24 | Outpatient (BNVA) | payer OTHER, SELFPAY | PROVIDERS: Visit Provider Obstetrics & Gynecology | DX: N93.9 Abnormal uterine and vaginal bleeding, unspecified (principal); D25.9 Leiomyoma of uterus, unspecified | CPT/HCPCS: 99212 ==

== ENCOUNTER 2025-04-29 15:53 | Outpatient (AMB) | payer OTHER, SELFPAY ==
[2025-04-29 15:55] VITALS: BP 102/60; PULSE 82; RESP 18; O2SAT 100; BMI 27.6
--- NOTE | 2025-04-29 15:55 | A.OFFPC_ITS ---
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 Accompanied by: Self / Same As Patient Allergies No Known Allergies Allergy (Verified 04/29/25 16:20) Medication List - Last Reconciled 04/29/25 by TIANNA Peters ferrous gluconate 225 mg PO DAILY 90 days ibuprofen 800 mg PO Q8H PRN multivitamin 1 tab PO DAILY trazodone 25 mg (1/2 x 50 mg) PO BEDTIME PRN Tobacco use date assessed: 04/29/25 Dental Screening Dental Screen Date: 04/29/25 Did you have a dental visit in the last 12 months?: Yes Did you have a dental problem in the last 6 months where you did not have access to dental care?: No Was dental information given to patient?: Patient has dentist HPI 3 months HPI Details Patient is a 49-year-old female presenting for HLD, anxiety, depression, insomnia, follow up The patient isn't completed preordered labs as yet-per patient, she forgot because she has a lot going on She reports worsening mental health. The patient has been struggling with both depression and anxiety since the end of January, which is attributed to feelings of loneliness and hopelessness related to the patient's son being an adult and not around, and family situations. The patient's symptoms have escalated to include suicidal ideation, expressing a desire to no longer be on earth. Due to expressing feelings of self-harm during a therapy session last week, the patient's therapist initiated a crisis team visit to the patient's home, and they checked on the patient for three days. The patient refused a recommendation to go to the hospital at that time. Past mental health treatment was received in [place] at [facility] . The patient has a history of being on medications including Wellbutrin and trazodone, but it has been a long time. The patient reports significant insomnia, with one night last week resulting in only an hour and a half of sleep, and has been taking 50 mg of trazodone. Associated symptoms include forgetting things, difficulty concentrating, and struggling with work performance. Regarding health maintenance, the patient is 49 years old and has not had a colonoscopy, and requested a Cologuard test. Health Maintenance - Colon cancer screening: The patient is 49 and has not had a colonoscopy. - A Cologuard test was ordered. Social History - Family status: The patient feels very lonely and hopeless; the patient's son is an adult and not living with the patient, and other family members are busy with their own lives. - Employment: The patient is struggling with work and is not up to speed. - Nutritional Intake: The patient report s eating whatever is available due to a lack of desire to go grocery shopping. Results colougard order will be placed REPLACED BY [facility] Medical History Multinodular goiter (nontoxic) HLD (hyperlipidemia) Cytology examination positive for high risk human papillomavirus (HPV) Fibroids Thyroid mass Surgical History History of loop electrosurgical excision procedure (LEEP) Hx of dilation and curettage Family History Father Hypertension High cholesterol Mother Diabetes Hypertension High cholesterol FH: mental illness Depression Son No problems noted. 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 Depression Screening Interpretation: Positive Depression Screening Done: Yes Source: Developed by Drs. Devin Boland, Lilia Montejo, Shay Alexis and colleagues, with an educational brian from [email or web address]. Thrive Questionnaire Date Thrive assessed: 09/25/24 I am a: Patient What is your living situation today?: I have a steady place to live Within the past 12 months, did the food you bought not last and you didn't have the money to get more?: I choose not to answer this question Within the past 12 months, did you worry whether your food would run out before you got money to buy more?: I choose not to answer this question Do you have trouble paying for medicines?: I choose not to answer this question Do you have trouble getting transportation to medical appointments?: No Do you have trouble paying your heating and electricity bill?: No Do you have trouble taking care of your child, family member or friend?: No Do you have trouble with day-to-day activities such as bathing, preparing meals, shopping, managing finances, etc.?: Yes Are you currently unemployed and looking for a job?: No Are you interested in more education?: Yes Please select the resources that you would like help with: Education Currently or been in a relationship where the following occur: No concerns reported THRIVE Score: 0 KOKO-7 AMB Questionnaire KOKO-7 Date KOKO - 7 assessed: 01/21/25 Source: Developed by Drs. Devin Boland, Lilia Montejo, Shay Alexis and colleagues, with an educational brian from [email or web address]. Review of Systems Narrative Review of Systems - Psychiatric: Reports depression, anxiety, craziest thoughts, feelings of loneliness, hopelessness, and suicidal ideation. - Constitutional: Reports changes in eating habits due to mental health state. - Neurological: Reports forgetfulness and difficulty concentrating. - Sleep: Reports insomnia, with as little as 1.5 hours of sleep on one occasion. Const Denies body aches, Denies chills, Reports difficulty sleeping, Denies fever(s), Denies headache(s) and Denies poor appetite Eyes Reports no additional complaints ENT Denies dysphagia, Denies dizziness, Denies headache(s) and Denies odynophagia Card Denies chest pain, Denies syncope, Denies edema, Denies irregular heart rhythm, Denies lightheadedness and Denies dyspnea Resp Denies cough and Denies dyspnea GI Reports abdominal pain (epigastric), Reports bloating (Vibratory sensation in abdomen on and off), Denies constipation, Denies dysphagia, Denies diarrhea, Denies nausea, Denies odynophagia and Denies vomiting Reports abnormal menses, Reports menorrhagia and Reports dysmenorrhea Musc Reports back pain Skin/Breast Reports system reviewed and no additional complaints, except as documented Neuro Denies dizziness, Denies syncope and Denies headache(s) Psych Reports anxiety, Reports depression, Denies homicidal ideation and Reports suicidal ideation Physical exam (Primary Care) Vital Signs: Last Vital Signs Pulse 82 04/29/25 15:55 Resp 18 04/29/25 15:55 BP 102/60 04/29/25 15:55 Pulse Ox 100 04/29/25 15:55 Oxygen Delivery Method Room Air 04/29/25 15:55 BMI result Body Mass Index 27.6 Tobacco/Smoking Status: Tobacco use Status Tobacco use date assessed 04/29/25 04/29/25 16:00 Patient Tobacco Use Status Never used Tobacco 04/29/25 16:00 e-Cigarette/Vaping Use Never Used 04/29/25 16:00 Depression Screening Interpretation: Positive Thrive Assessment: Date of Thrive Assessment Date Thrive assessed 09/25/24 04/29/25 16:00 Currently or been in a relationship where the following occur: No concerns reported Narrative Physical Exam - Pulmonary: Lungs are clear to auscultation after deep breaths. Const General: cooperative, healthy appearing, comfortable and no acute distress Orientation/consciousness: patient oriented x3 HENMT Head: Yes normocephalic Ears: hearing grossly normal bilaterally General nose exam: Normal external nose present Eyes General: appearance normal, both eyes and all related structures Conjunctivae: conjunctivae normal Neck Neck: Yes full ROM and Yes no lymphadenopathy Resp Effort & Inspection: normal respiratory effort Auscultation: clear to auscultation bilaterally, no crackles, no rales, no rhonchi and no wheezes Cardio Rate: regular rate Rhythm: regular rhythm GI Palpation (GI): Soft to palpation and nontender Auscultation: normal bowel sounds General: Yes no CVA tenderness Back/Spine/Pelvis Back: no CVA tenderness Thoracic/Lumbar Spine: No lumbar spinal tenderness Skin General skin exam: no rashes or lesions noted Neuro General: patient oriented x3 Gait exam (Neuro): Normal gait present Extrem General: Yes normal to inspection, Yes full ROM and No edema Psych Affect: normal affect Attitude: cooperative Insight: Good insight present (Psych) Judgement: Good judgement present (Psych) Coding Level of Care Code Est Pt Level 4 (85520) Diagnoses Anxiety and depression F41.9; F32.A Pure hypercholesterolemia E78.00 Epigastric pain R10.13 Abdominal location: epigastric Change in bowel habit R19.4 Insomnia, unspecified type G47.00 Insomnia type: unspecified Thyroid mass E07.9 Time Spent (min) 38 Assessment & Plan Assessment & Plan (1) Anxiety and depression: Code(s): F41.9 - Anxiety disorder, unspecified; F32.A - Depression, unspecified Category: Medical Plan: The patient is experiencing a severe exacerbation of mental health issues, including depression, anxiety, and suicidal ideation, which started in late January. The patient's therapist initiated a crisis intervention last week after the patient expressed intent for self-harm. Given the severity and the patient's willingness to start medication, a temporary course of sertraline will be initiated. An urgent referral will be placed for the patient to see an outpatient psychiatry NUCLEAR LICENSING ENGINEER for a more thorough evaluation and management. The patient was provided with emergency contact numbers (crisis line) for use during overwhelming moments. (2) Pure hypercholesterolemia: Code(s): E78.00 - Pure hypercholesterolemia, unspecified Category: Medical Plan: Total cholesterol decreased from 271 to 233 and LDL decreased from 183 to 156 on previous labs-the patient has not completed preordered labs and we will get this done as soon as possible Discussed lifestyle modifications including dietary changes and physical activity Patient was to continue making dietary changes We will repeat lipid panel in 3 months (3) Abdominal pain: Code(s): R10.9 - Unspecified abdominal pain Category: Medical Qualifiers: Abdominal location: epigastric Qualified Code(s): R10.13 - Epigastric pain Plan: Abdominal pain decreased some. Patient was evaluated by GI, she also has a barium swallow coming up. Follow up with GI as scheduled (4) Change in bowel habit: Code(s): R19.4 - Change in bowel habit Category: Medical Plan: Follow up with GI as scheduled (5) Insomnia: Code(s): G47.00 - Insomnia, unspecified Category: Medical Qualifiers: Insomnia type: unspecified Qualified Code(s): G47.00 - Insomnia, unspecified Plan: The patient reports poor sleep, including one night with only 1.5 hours of sleep, despite taking 50 mg of trazodone. The trazodone dose will be increased to 100 mg to improve sleep quality (6) Thyroid mass: Code(s): E07.9 - Disorder of thyroid, unspecified Category: Medical Plan: Patient was seen by Endocrine and had a fine-needle aspiration biopsy of the right lower pole 1.5 cm nodule came back with benign cytology. This yields a 3% chance of malignancy. The plan is to repeat an ultrasound in 1 year. Plan Plan Patient was informed and verbally consented to the use of an ambient scribe for clinic note documentation during this visit. 1. Major Depressive Disorder With Anxious Distress And Suicidal Ideation The patient is experiencing a severe exacerbation of mental health issues, including depression, anxiety, and suicidal ideation, which started in late January. The patient's therapist initiated a crisis intervention last week after the patient expressed intent for self-harm. Given the severity and the patient's willingness to start medication, a temporary course of sertraline will be initiated. An urgent referral will be placed for the patient to see an outpatient psychiatry NUCLEAR LICENSING ENGINEER for a more thorough evaluation and management. The patient was provided with emergency contact numbers (crisis line) for use during overwhelming moments. 2. Insomnia The patient reports poor sleep, including one night with only 1.5 hours of sleep, despite taking 50 mg of trazodone. The trazodone dose will be increased to 100 mg to improve sleep quality. 3. Health Maintenance: Colon Cancer Screening The patient is 49 years old and has not undergone colon cancer screening. Per the patient's request, a Cologuard test will be ordered. Discussion Notes I discussed the patient's current mental health crisis, validating the severity of the depression, anxiety, and suicidal ideation. I explained that starting medication is a reasonable step and that antidepressants like sertraline take time to become effective. I informed the patient that I am placing an urgent referral to an outpatient psychiatry provider for more specialized management and that the sertraline is a temporary measure. I provided the patient with emergency contact numbers and strongly encouraged their use if feelings of self- harm become overwhelming, while offering reassurance that the patient is valued. We discussed the patient's poor sleep and agreed to increase the trazodone dosage to 100 mg. In response to the patient's request for colon cancer screening, I agreed to order a Cologuard test and explained that the company will mail the kit directly to the patient's home with instructions. I prioritized the patient's mental well-being over the pending lab work, stating we can address those results at a later time. A follow-up visit was scheduled in four weeks to monitor progress. Patient Instructions - Start taking the new medication, sertraline, as prescribed. - Increase your Trazodone dose to 100 mg at bedtime to help with sleep. - Expect a phone call to schedule an urgent appointment with a mental health specialist. - If you feel your thoughts are overwhelming or you feel like harming yourself, please call the emergency numbers that were provided to you. - A Cologuard kit for colon cancer screening will be mailed to your home. 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 - Your blood work is less important right now than your mental health, but you can get it done before your next appointment if you feel up to it. - Please try to get your past mental health records from [place] and [place] sent to our office. - Come back for a follow-up visit in four weeks, on a Monday. Orders: Referrals Cologuard Test Z12.11 - Encounter for screening for malignant neoplasm of colon, Z12.12 - Encounter for screening for malignant neoplasm of rectum Psychiatry Outpatient Consultation Service F32.A - Depression, unspecified, F41.9 - Anxiety disorder, unspecified, R45.851 - Suicidal ideations Medications: New sertraline 50 mg PO DAILY 30 tabs 3RF trazodone 100 mg PO BEDTIME PRN 90 tabs 3RF sleep Discontinued trazodone Discontinued Reason: Duplicate 25 mg (1/2 x 50 mg) PO BEDTIME PRN 30 tabs 2RF insomnia
== END 2025-04-29 16:45 | disposition home or self-care (01) ==
LOC: HO.HMCH 15:54
DX: F41.9 Anxiety disorder, unspecified (principal); F32.A Depression, unspecified; E78.00 Pure hypercholesterolemia, unspecified; R10.13 Epigastric pain; R19.4 Change in bowel habit; G47.00 Insomnia, unspecified; E07.9 Disorder of thyroid, unspecified

== ENCOUNTER → 2025-04-29 15:53 | Outpatient (BNVA) | payer OTHER, SELFPAY | DX: R10.13 Epigastric pain (principal); R45.851 Suicidal ideations; F32.A Depression, unspecified; F41.9 Anxiety disorder, unspecified; G47.00 Insomnia, unspecified; E78.00 Pure hypercholesterolemia, unspecified; R19.4 Change in bowel habit; E07.9 Disorder of thyroid, unspecified | CPT/HCPCS: 99212 ==

== ENCOUNTER 2025-05-08 09:43 | Outpatient (REF) | payer OTHER, SELFPAY ==
--- NOTE | ~2025-05-08 | FL_ITS ---
EXAMINATION: XR BARIUM SWALLOW CLINICAL INFORMATION: Nausea and vomiting COMPARISON: None available. TECHNIQUE: Patient was administered thin and thick barium and effervescent granules. A barium tablet was also administered. FINDINGS: The swallowing mechanism is normal. No aspiration or penetration. Esophageal motility is normal. There is a small sliding-type hiatal hernia. There is mild gastroesophageal reflux. No evidence of esophagitis, mass or stricture. Barium tablet passed freely into the stomach. FLUOROSCOPY TIME: 1 minute 28 seconds DOSE AREA PRODUCT: 723 uGy-m2 (microgray-meter squared) FL/FL barium swallow with air IMPRESSION: Small sliding-type hiatal hernia and mild gastroesophageal reflux. Electronically signed by: Elise Hartley MD 05/08/2025 11:09 AM FRANCISCO JAVIER
== END 2025-05-08 09:44 | disposition home or self-care (01) ==
LOC: HO.XRAY 09:43
PROVIDERS: Visit Provider Internal Medicine
DX: R10.13 Epigastric pain (principal); R11.2 Nausea with vomiting, unspecified
CPT/HCPCS: 74221

== ENCOUNTER → 2025-05-08 09:44 | Outpatient (BNV) | payer OTHER, SELFPAY | PROVIDERS: Visit Provider Radiology Diagnostic Radiology | DX: K21.9 Gastro-esophageal reflux disease without esophagitis (principal) | CPT/HCPCS: 74221 ==

== ENCOUNTER → 2025-05-12 15:55 | Outpatient (BNVA) | payer OTHER, SELFPAY | PROVIDERS: Visit Provider Internal Medicine | DX: R10.13 Epigastric pain (principal); R19.4 Change in bowel habit; R11.2 Nausea with vomiting, unspecified; K21.9 Gastro-esophageal reflux disease without esophagitis; A04.8 Other specified bacterial intestinal infections; Z79.899 Other long term (current) drug therapy | CPT/HCPCS: 99212 ==